=== PATIENT | female | born 1995 | race African-American/Black ===

== ENCOUNTER 2016-08-18 19:55 | Emergency (ER) | payer SELFPAY ==
--- NOTE | 2016-08-18 20:45 | ER Document Report ---
ED Medical Screen (RME) - General Stated Complaint: NAUSEA AND VOMITING Time seen by provider: 20:42 Mode of Arrival: Medic Information source: Patient Notes: 20-year-old female complaining of upper abdominal cramping that started Saturday evening. Saturday morning she woke up vomiting. She's had some diarrhea also. She continues to have some mild cramping in her upper abdomen. She is unable to keep anything down. No fever. No dysuria. has not had a period since her last depot shot which was August 2015. I have greeted and performed a rapid initial assessment of this patient. A comprehensive ED assessment, evaluation of the patient, analysis of test results , and completion of the medical decision making process will be contacted by additional ED providers. Physical Exam - Vital signs Vitals: Temp Pulse Resp BP Pulse Ox 97.9 F 77 18 111/63 97 08/18/16 20:30 08/18/16 20:30 08/18/16 20:30 08/18/16 20:30 08/18/16 20:30 Course - Vital Signs Vital signs: Temp Pulse Resp BP Pulse Ox 97.9 F 77 18 111/63 97 08/18/16 20:30 08/18/16 20:30 08/18/16 20:30 08/18/16 20:30 08/18/16 20:30
[2016-08-18 21:07] LABS: ABSOLUTE EOSINOPHILS # (AUTO) 0.1 10^3/uL (0.0-0.6); ABSOLUTE LYMPHOCYTES (AUTO) 1.8 10^3/uL (0.5-4.7); ABSOLUTE MONOCYTES (AUTO) 0.6 10^3/uL (0.1-1.4); ABSOLUTE NEUT (AUTO) 6.4 10^3/uL (1.7-8.2); BASOPHILS % (AUTO) 0.5 % (0-2); HEMOGLOBIN 13.3 g/dL (12.0-15.5); HGB HCT DIFFERENCE -0.1; LYMPHOCYTES % (AUTO) 19.9 % (13-45); MEAN CORPUSCULAR HEMOGLOBIN 29.7 pg (27.0-33.4); MEAN CORPUSCULAR HGB CONC 33.3 g/dL (32.0-36.0); MEAN CORPUSCULAR VOLUME 89 fl (80-97); MONOCYTES % (AUTO) 6.5 % (3-13); RED BLOOD COUNT 4.49 10^6/uL (3.72-5.28); RED CELL DISTRIBUTION WIDTH 12.7 % (11.5-14.0); SEGMENTED NEUTROPHILS % (AUTO) 72.1 % (42-78); WHITE BLOOD COUNT 8.9 10^3/uL (4.0-10.5)
[2016-08-18 21:13] LABS: APPEARANCE,URINE SLIGHTLY-CLOUDY; BILIRUBIN,URINE NEGATIVE (NEGATIVE); GLUCOSE, URINE NEGATIVE (NEGATIVE); KETONES,URINE NEGATIVE (NEGATIVE); LEUKOCYTE ESTERASE,URINE NEGATIVE (NEGATIVE); NITRITE,URINE NEGATIVE (NEGATIVE); PROTEIN,URINE 30 mg/dL (NEGATIVE); URINE SPECIFIC GRAVITY 1.031; UROBILINOGEN,URINE NEGATIVE mg/dL (<2.0)
[2016-08-18 21:20] LABS: ALANINE AMINOTRANSFERASE 27 U/L (9-52); ALBUMIN 4.7 g/dL (3.5-5.0); ALKALINE PHOSPHATASE 96 U/L (38-126); ANION GAP 13 (5-19); ASPARTATE AMINO TRANSFERASE 17 U/L (14-36); BILIRUBIN,TOTAL 0.7 mg/dL (0.2-1.3); BLOOD UREA NITROGEN 9 mg/dL (7-20); CARBON DIOXIDE 27 mmol/L (22-30); CHLORIDE 104 mmol/L (98-107); CREATININE RESULT 0.65 mg/dL (0.52-1.25); GLUCOSE 104 mg/dL (75-110); LIPASE 51.1 U/L (23-300); SODIUM 143.6 mmol/L (137-145); TOTAL PROTEIN 7.8 g/dL (6.3-8.2)
[2016-08-18] MEDS ORDERED: NORMAL SALINE 1000 ML 1,000 ML IV ONE (21:47)
[2016-08-18] MEDS ORDERED: ONDANSETRON HCL INJ/PF 4 MG/2 ML SDV IV ONE (21:47)
--- NOTE | 2016-08-18 22:30 | ER Document Report ---
ED GI/ - General Chief Complaint: Nausea/Vomiting/Diarrhea Stated Complaint: NAUSEA AND VOMITING Time seen by provider: 22:25 Mode of Arrival: Medic Notes: Patient is a 20-year-old female that comes by EMS for chief complaint of vomiting and diarrhea since yesterday, states she vomited 6 times today, states that if she drinks anything she vomits. She denies fever or chills. She states she did eat some suspicious-looking Armenian food about 8 hours prior to symptoms. She denies any recent antibiotics. She denies any blood in her stool or vomit. Patient denies any surgeries, denies any daily medications, reports past medical history of a . Patient has not had a recent menstrual cycle after getting off of depo shot. TRAVEL OUTSIDE OF THE [place] IN LAST 30 DAYS: No - Related Data Allergies/Adverse Reactions: Penicillins Allergy (Verified 08/18/16 20:45) Past Medical History - General Information source: Patient - Social History Smoking Status: Never Smoker Cigarette use (# per day): No Chew tobacco use (# tins/day): No Frequency of alcohol use: None Drug Abuse: None Lives with: Family Family History: Reviewed & Not Pertinent - Medical History Medical History: Negative Renal/ Medical History: Denies: Hx Peritoneal Dialysis Past Surgical History: Reports: Hx Section Review of Systems - Review of Systems Constitutional: See HPI EENT: See HPI Cardiovascular: No symptoms reported Respiratory: No symptoms reported Gastrointestinal: See HPI Genitourinary: No symptoms reported Female Genitourinary: No symptoms reported Musculoskeletal: No symptoms reported Skin: No symptoms reported Hematologic/Lymphatic: No symptoms reported Neurological/Psychological: No symptoms reported Physical Exam - Vital signs Vitals: Temp Pulse Resp BP Pulse Ox 97.9 F 77 18 111/63 97 08/18/16 20:30 08/18/16 20:30 08/18/16 20:30 08/18/16 20:30 08/18/16 20:30 Interpretation: Normal - General General appearance: Appears well, Alert In distress: None - HEENT Head: Normocephalic, Atraumatic Eyes: Normal Conjunctiva: Normal Extraocular movements intact: Yes Eyelashes: Normal Pupils: PERRL Ears: Normal Sinus: Normal Nasal: Normal Mouth/Lips: Normal Mucous membranes: Dry Pharynx: Normal Neck: Normal - Respiratory Respiratory status: No respiratory distress Chest status: Nontender Breath sounds: Normal Chest palpation: Normal - Cardiovascular Rhythm: Regular. No: Tachycardia Heart sounds: Normal auscultation, S1 appreciated, S2 appreciated Murmur: No - Abdominal Inspection: Normal Distension: No distension Bowel sounds: Normal Tenderness: Nontender. No: Tender, McBurney's point, Chavira's sign, Guarding Organomegaly: No organomegaly - Back Back: Normal, Nontender - Extremities General upper extremity: Normal inspection, Nontender, Normal color, Normal ROM , Normal temperature General lower extremity: Normal inspection, Nontender, Normal color, Normal ROM , Normal temperature, Normal weight bearing. No: Ramón's sign - Neurological Neuro grossly intact: Yes Cognition: Normal Orientation: AAOx4 Angel[place] Coma Scale Eye Opening: Spontaneous Angel[place] Coma Scale Verbal: Oriented Angelica Coma Scale Motor: Obeys Commands Angelica Coma Scale Total: 15 Speech: Normal Motor strength normal: LUE, RUE, LLE, RLE Sensory: Normal - Psychological Associated symptoms: Normal affect, Normal mood - Skin Skin Temperature: Warm Skin Moisture: Dry Skin Color: Normal Course - Re-evaluation Re-evalutation: Patient has no unremarkable abdominal exam. Dry mucous membranes. Elevated specific gravity in urine, CBC, chemistry unremarkable. Patient states she feels excellent after fluids, Zofran. Patient tolerating by mouth fluids without difficulty. Clinical picture is most consistent with either mild food poisoning from a toxin or viral gastroenteritis. No evidence of acute abdomen. Patient will be treated with nausea medications, discussed return precautions. Patient states understanding and agreement. - Vital Signs Vital signs: Temp Pulse Resp BP Pulse Ox 98.5 F 75 18 120/65 98 08/18/16 22:52 08/18/16 22:52 08/18/16 22:52 08/18/16 22:52 08/18/16 22:52 - Laboratory Result Diagrams: 08/18/16 20:50 08/18/16 20:50 Laboratory results interpreted by me: 08/18/16 20:50 Urine Protein 30 H Discharge - Discharge Clinical Impression: Nausea vomiting and diarrhea Condition: Stable Disposition: HOME, SELF-CARE Additional Instructions: Your workup shows no abnormalities other than dehydration. Take nausea medication, continue to rehydrate. Symptoms and examination are most suggestive of either food poisoning with a toxin ingestion or viral gastroenteritis. Start with bland food. Follow-up with primary care. Return to the emergency department for any concerning or worsening symptoms including severe abdominal pain or swelling, uncontrolled vomiting, etc. Prescriptions: Promethazine HCl [Phenergan 25 mg Tablet] 1 - 2 tab PO Q6H PRN #20 tablet PRN Reason: Forms: Return to Work
[2016-08-18 22:55] VITALS: BP 120/65
== END 2016-08-18 22:55 | disposition home or self-care (01) ==
LOC: ER 19:55
DX: R11.2 Nausea with vomiting, unspecified (principal); R19.7 Diarrhea, unspecified; Z88.0 Allergy status to penicillin
CPT/HCPCS: 99283; 96361; 96374; 36415; 87086; 83690; 84703; 85025; 80053; 81001; J2405; J7030

== ENCOUNTER 2016-11-04 08:55 | Emergency (ER) | payer MEDICAID ==
[2016-11-04] MEDS ORDERED: NAPROXEN 250 MG TABLET PO ONE (09:26)
[2016-11-04] MEDS ORDERED: METHOCARBAMOL 500 MG TABLET PO ONE (09:27)
--- NOTE | 2016-11-04 09:49 | ER Document Report ---
ED Neck/Back Problem - General Chief Complaint: Back Pain Stated Complaint: BACK PAIN Mode of Arrival: Ambulatory Information source: Patient Notes: 21 y/o female presents to the emergency department complaining of back pain. Patient reports has had intermittent chronic back pain to mid and lower back for approximately the last 10 years but has never been evaluated for it until this past week. Patient reports over the last week pain has become worse in severity. Reports pain is worse with movement and bending of back. Reports had x-rays of lumbar spine by PCP this past week which she reports showed some scoliosis. Denies trauma or recent injury, fever, dysuria, vaginal bleeding or discharge, extremity weakness/numbness/tingling, saddle numbness, bladder/bowel dysfunction. TRAVEL OUTSIDE OF THE [place] IN LAST 30 DAYS: No - HPI Onset: Chronic Timing: Worse Quality of pain: Achy, Cramping Severity: Moderate Pain Level: 4 Recent injury: No Associated symptoms: Like prior neck/back pain, Lower back pain. denies: Abdominal pain, Chills, Constipation, Fever, Incontinence, Motor loss, Numbness/ tingling, Radiation to arm, Radiation to leg, Sensory loss, Unable to urinate Exacerbated by: Movement of trunk Relieved by: Upright position Similar symptoms previously: Yes Recently seen / treated by doctor: Yes - Related Data Allergies/Adverse Reactions: Penicillins Allergy (Verified 11/04/16 09:52) Past Medical History - General Information source: Patient - Social History Smoking Status: Former Smoker Chew tobacco use (# tins/day): No Frequency of alcohol use: None Drug Abuse: None Lives with: Family Family History: Reviewed & Not Pertinent - Medical History Medical History: Negative Renal/ Medical History: Denies: Hx Peritoneal Dialysis Past Surgical History: Reports: Hx Section - Immunizations Hx Diphtheria, Pertussis, Tetanus Vaccination: Yes Review of Systems - Review of Systems Constitutional: No symptoms reported EENT: No symptoms reported Cardiovascular: No symptoms reported Respiratory: No symptoms reported Gastrointestinal: No symptoms reported Genitourinary: No symptoms reported Female Genitourinary: No symptoms reported Musculoskeletal: See HPI Skin: No symptoms reported Hematologic/Lymphatic: No symptoms reported Neurological/Psychological: No symptoms reported -: Yes All other systems reviewed and negative Physical Exam - Vital signs Vitals: Temp Pulse Resp BP Pulse Ox 98.4 F 83 16 116/72 97 11/04/16 08:59 11/04/16 08:59 11/04/16 08:59 11/04/16 08:59 11/04/16 08:59 - General General appearance: Appears well, Alert In distress: None - HEENT Head: Normocephalic, Atraumatic Eyes: Normal Pupils: PERRL - Respiratory Respiratory status: No respiratory distress Chest status: Nontender Breath sounds: Normal - CTAB Chest palpation: Normal - Cardiovascular Rhythm: Regular Heart sounds: Normal auscultation Murmur: No Pulses: Normal: Radial Normal capillary refill: Yes - Abdominal Inspection: Normal Distension: No distension Bowel sounds: Normal Tenderness: Nontender Organomegaly: No organomegaly - Back Back: Tender. No: Normal - diffuse tenderness with palpation to bilateral paraspinal musculature at thoracic and upper lumbar level. no instability, deformity, crepitus, bruising. Neurovascular function intact with immediate capillary refill, palpable pedal pulses, and distal sensation intact., Nontender , Deformity/step-off, CVA tenderness, Vertebra tenderness, Scars, Scoliosis, Wounds, Other - Extremities General upper extremity: Normal inspection, Nontender, Normal color, Normal ROM , Normal strength, Normal temperature. No: Edema General lower extremity: Normal inspection, Nontender, Normal color, Normal ROM , Normal strength, Normal temperature, Normal weight bearing. 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 X-ray shows mild convex right mid thoracic curvature. The patient presents with back pain without signs of spinal cord compression, cauda equina syndrome, infection, aneurysm, or other serious etiology. The patient is neurologically intact, independently and steadily ambulatory without paresthesias or neurological deficits. Given the extremely low risk of these diagnoses further testing and evaluation for these possibilities does not appear to be indicated at this time. Patient appears stable for discharge and agrees with home care, follow-up , and ED return precautions. - Vital Signs Vital signs: Temp Pulse Resp BP Pulse Ox 98.4 F 67 18 113/74 100 11/04/16 08:59 11/04/16 10:52 11/04/16 10:52 11/04/16 10:52 11/04/16 10:52 - Diagnostic Test Radiology reviewed: Image reviewed, Reports reviewed Discharge - Discharge Clinical Impression: Back pain, thoracic Qualifiers: Chronicity: chronic Back pain laterality: bilateral Qualified Code(s): M54.6 - Pain in thoracic spine Condition: Stable Disposition: HOME, SELF-CARE Additional Instructions: BACK PAIN: Three out of every four people will have an episode of disabling back pain during their lifetime. Most commonly the pain is due to straining of the muscles and ligaments in the back. Usual treatment includes: (1) Rest on a firm surface. Avoid lying on your stomach. (2) Ice pack the painful area. After a few days, gentle heat may be used intermittently to relax the area, or ice packs can be continued. (3) Medication may be needed -- muscle relaxers and antiinflammatory medicines are commonly used. (4) As the back improves, exercises are prescribed to strengthen the back and abdominal muscles. Your doctor will advise you on the proper care for your back at each stage in your recovery. You may be better in a few days -- or healing may take several weeks. If new symptoms of a "herniated disc" (radiation of pain, numbness, or tingling down the back of the leg or weakness in the leg) occur, you should be re-examined. Further testing may be necessary. Anti-Inflammatory Medication You have received a prescription for an antiinflammatory agent. This is an excellent, safe drug for pain control. In addition, it has potent antiinflammatory effects which are beneficial, especially in the treatment of injuries, arthritis, or tendonitis. It's best to take this medicine with food. Persons with ulcer disease or allergy to aspirin should notify their physician of this before taking this drug. Take the medication exactly as prescribed. Don't take additional doses unless instructed to do so by your doctor. If you develop wheezing, shortness of breath, hives, faintness, stomach pain, vomiting, or dark black stools, return for re-evaluation at once. MUSCLE RELAXERS: Muscle relaxing medications are usually prescribed for acute muscle spasm or injury to the neck and back. They are often combined with antiinflammatory pain medication for increased relief. You may stop the muscle relaxer when the pain and stiffness have improved. Start the medication again if spasms recur. Muscle relaxers may cause drowsiness, especially with the first dose. Do not operate machinery or drive while under the effects of the medication. Most muscle relaxers last up to 24 hours. Do not combine the medication with alcohol. ICE PACKS: Apply ice packs frequently against the painful area. Many different schedules are recommended, such as "20 minutes on, 20 minutes off" or "one hour ice, two hours rest." If you need to work, you may need to go longer between ice treatments. You should plan to have the area ice packed AT LEAST one fourth of the time. The ice should be applied over the wrap, tape, or splint, or over a layer of cloth -- not directly against the skin. Some ice bags have a built-in cloth and can be put directly on the skin. WARM PACKS: After approximately two days, apply gentle heat (such as a heating pad or hot water bottle) for about 20 to 30 minutes about every two hours -- at least four times daily. Warmth and elevation will help you make a more rapid recovery , and will ease the pain considerably. Do not use HOT heat, and never apply heat for longer than 30 minutes. The continuous heat can invisibly damage skin and muscles -- even when no burn is seen on the surface. Damaged muscles can make you MORE sore. FOLLOW-UP CARE: Follow-up with your primary care provider and logistic specialist this week. Return to the emergency department for any worsening symptoms or concerns. Prescriptions: Methocarbamol [Robaxin 500 mg Tablet] 500 mg PO Q8HP PRN #10 tablet PRN Reason: Naproxen 500 mg PO BIDP PRN #10 tablet PRN Reason: Referrals: MACI DOTSON MD [NO LOCAL MD] - Follow up in 3-5 days
[2016-11-04 10:54] VITALS: BP 113/74
== END 2016-11-04 10:52 | disposition home or self-care (01) ==
LOC: ER 08:55
DX: G89.29 Other chronic pain (principal); M54.6 Pain in thoracic spine; M41.9 Scoliosis, unspecified; Z88.0 Allergy status to penicillin; Z87.891 Personal history of nicotine dependence
CPT/HCPCS: 99283; 72070; J3490 ×2

== ENCOUNTER 2017-02-07 10:23 | Emergency (ER) | payer MEDICAID ==
[2017-02-07 10:29] VITALS: BP 133/63
--- NOTE | 2017-02-07 10:40 | ER Document Report ---
HPI - HPI Patient complains to provider of: right hip pain Onset: Other - one week Onset/Duration: Gradual Quality of pain: Achy Pain Level: 4 Context: denies injury, trauma. denies past history of injury of this extremity Associated Symptoms: None Exacerbated by: Movement, Walking, Other - deep palaption Relieved by: Remaining still Similar symptoms previously: No Recently seen / treated by doctor: No - DERM Skin Color: Normal Past Medical History - Social History Smoking Status: Never Smoker Family History: Reviewed & Not Pertinent Patient has suicidal ideation: No Patient has homicidal ideation: No Renal/ Medical History: Denies: Hx Peritoneal Dialysis Past Surgical History: Reports: Hx Section - Immunizations Hx Diphtheria, Pertussis, Tetanus Vaccination: Yes Vertical Provider Document - CONSTITUTIONAL Agree With Documented VS: Yes Exam Limitations: No Limitations General Appearance: WD/WN, No Apparent Distress - INFECTION CONTROL TRAVEL OUTSIDE OF THE [place] IN LAST 30 DAYS: No - RESPIRATORY O2 Sat by Pulse Oximetry: 99 - CARDIOVASCULAR Pulses: Normal: Dorsalis pedis Notes: cap refill < 2 seconds - MUSCULOSKELETAL/EXTREMETIES Musculoskeletal/Extremeties: MAEW, FROM, Tender - along ITB of right leg, No Edema. negative: Eccymosis Notes: no deformity, gait stable - NEURO Level of Consciousness: Awake, Alert, Appropriate Motor/Sensory: No Motor Deficit, No Sensory Deficit - DERM Integumentary: Warm, Dry, No Rash. negative: Abscess Course - Re-evaluation Re-evalutation: 02/07/17 11:15 Patient is a 21-year-old female presents with right hip and thigh pain for 1 week. Presentation and exam consistent with IT band syndrome. Low clinical suspicion for any underlying fracture, dislocation given benign exam therfore no imaging needed at this time, wells score 0. Patient educated on over-the- counter anti-inflammatories, stretches, ice. Patient to follow-up with primary care as needed. Patient agrees with plan. - Vital Signs Vital signs: Temp Pulse Resp BP Pulse Ox 98.1 F 65 16 133/63 H 99 02/07/17 10:27 02/07/17 10:27 02/07/17 10:27 02/07/17 10:27 02/07/17 10:27 Discharge - Discharge Clinical Impression: IT band syndrome Qualifiers: Laterality: right Qualified Code(s): M76.31 - Iliotibial band syndrome, right leg Condition: Good Disposition: HOME, SELF-CARE Instructions: Use of Idfy-Tfo-Siwqyxy Ibuprofen ([facility]), Ice Packs ([facility]) Additional Instructions: Your complaint today is related to inflammation of your IT band Prescriptions: Ibuprofen [Motrin 800 mg Tablet] 800 mg PO Q8H PRN #30 tab PRN Reason:
[2017-02-07] MEDS ORDERED: IBUPROFEN 800 MG TABLET PO ONE (10:56)
== END 2017-02-07 11:06 | disposition home or self-care (01) ==
LOC: ER 10:23
DX: M76.31 Iliotibial band syndrome, right leg (principal)
CPT/HCPCS: 99283

== ENCOUNTER 2017-04-07 01:52 | Emergency (ER) | payer MEDICAID ==
[2017-04-07 02:02] VITALS: BP 127/66
[2017-04-07] MEDS ORDERED: FLUCONAZOLE 100 MG TABLET PO ONE (02:46)
[2017-04-07 03:11] LABS: APPEARANCE,URINE SLIGHTLY-CLOUDY; BILIRUBIN,URINE NEGATIVE (NEGATIVE); GLUCOSE, URINE NEGATIVE (NEGATIVE); KETONES,URINE TRACE mg/dL (NEGATIVE); LEUKOCYTE ESTERASE,URINE NEGATIVE (NEGATIVE); NITRITE,URINE NEGATIVE (NEGATIVE); PROTEIN,URINE 30 mg/dL (NEGATIVE); URINE SPECIFIC GRAVITY 1.033
--- NOTE | 2017-04-07 03:19 | ER Document Report ---
ED GI/ - General Chief Complaint: Vaginal Pain Stated Complaint: VAGINAL ISSUES Time Seen by Provider: 04/07/17 02:18 Mode of Arrival: Ambulatory Information source: Patient TRAVEL OUTSIDE OF THE [place] IN LAST 30 DAYS: No - HPI Patient complains to provider of: Vaginal discharge Onset: Yesterday Timing/Duration: Persistent Quality of pain: Achy Severity at maximum: Mild Severity in ED: Mild Location: Vaginal Associated symptoms: Vaginal discharge Notes: 04/07/17 05:06 Patient is a 21-year-old female presenting to the emergency room today complaining of vaginal discharge which is thick and white in nature and causing vaginal irritation, she reports that she last had sexual intercourse approximately 1 month ago, with a long-term partner, it was unprotected, she then experienced 2 periods over the course of 3 weeks, and she used a vaginal douche on Saturday, the next day she developed the thick white discharge and discomfort, she denies any nausea or vomiting, no diarrhea, no fever or chills - Related Data Allergies/Adverse Reactions: Penicillins Allergy (Verified 04/07/17 02:00) Past Medical History - General Information source: Patient - Social History Smoking Status: Never Smoker Drug Abuse: Marijuana Family History: Reviewed & Not Pertinent Renal/ Medical History: Denies: Hx Peritoneal Dialysis Past Surgical History: Reports: Hx Section - Immunizations Hx Diphtheria, Pertussis, Tetanus Vaccination: Yes Review of Systems - Review of Systems Constitutional: No symptoms reported EENT: No symptoms reported Cardiovascular: No symptoms reported Respiratory: No symptoms reported Gastrointestinal: No symptoms reported Genitourinary: No symptoms reported Female Genitourinary: See HPI Musculoskeletal: No symptoms reported Skin: No symptoms reported Hematologic/Lymphatic: No symptoms reported Neurological/Psychological: No symptoms reported -: Yes All other systems reviewed and negative Physical Exam - Vital signs Vitals: Temp Pulse Resp BP Pulse Ox 98.7 F 82 17 127/66 H 96 04/07/17 01:59 04/07/17 01:59 04/07/17 01:59 04/07/17 01:59 04/07/17 01:59 Interpretation: Normal - General General appearance: Appears well, Alert - HEENT Head: Normocephalic, Atraumatic Eyes: Normal Pupils: PERRL - Respiratory Respiratory status: No respiratory distress Chest status: Nontender Breath sounds: Normal Chest palpation: Normal - Cardiovascular Rhythm: Regular Heart sounds: Normal auscultation Murmur: No - Abdominal Inspection: Normal Distension: No distension Bowel sounds: Normal Tenderness: Nontender Organomegaly: No organomegaly - Genitourinary External exam: Normal Speculum exam: Vaginal discharge - Thick white cottage cheeselike discharge Vaginal bleeding: None Bimanuel exam: Normal - Back Back: Normal, Nontender - Extremities General upper extremity: Normal inspection, Nontender, Normal color, Normal ROM , Normal temperature General lower extremity: Normal inspection, Nontender, Normal color, Normal ROM , Normal temperature, Normal weight bearing. No: Ramón's sign - Neurological Neuro grossly intact: Yes Cognition: Normal Orientation: AAOx4 [place] Coma Scale Eye Opening: Spontaneous [place] Coma Scale Verbal: Oriented Angelica Coma Scale Motor: Obeys Commands Angelica Coma Scale Total: 15 Speech: Normal Motor strength normal: LUE, RUE, LLE, RLE Sensory: Normal - Psychological Associated symptoms: Normal affect, Normal mood - Skin Skin Temperature: Warm Skin Moisture: Dry Skin Color: Normal Course - Re-evaluation Re-evalutation: 04/07/17 05:07 Physical exam findings consistent with vaginal yeast infection, patient was given a dose of Diflucan in the emergency room and advised to follow-up with the primary care provider as needed, return if symptoms worsen, patient acknowledges understanding and agreement with this plan - Vital Signs Vital signs: Temp Pulse Resp BP Pulse Ox 98.7 F 84 18 127/66 H 100 04/07/17 01:59 04/07/17 03:30 04/07/17 03:30 04/07/17 01:59 04/07/17 03:30 - Laboratory Laboratory results interpreted by me: 04/07/17 02:59 Urine Protein 30 H Urine Ketones TRACE H Urine Urobilinogen 2.0 H Urine Ascorbic Acid 20 H Discharge - Discharge Clinical Impression: Vaginal yeast infection Condition: Stable Disposition: HOME, SELF-CARE Instructions: Vaginal Yeast Infection ([facility]) Additional Instructions: Follow up with your primary care provider in one to 2 days. Return to the emergency room immediately if symptoms worsen or any additional concerns.
[2017-04-07 04:22] LABS: CHLAM PCR NOT DETECTED (NOT DETECT)
== END 2017-04-07 03:30 | disposition home or self-care (01) ==
LOC: ER 01:52
DX: B37.3 Candidiasis of vulva and vagina (principal); R10.2 Pelvic and perineal pain; N89.8 Other specified noninflammatory disorders of vagina
CPT/HCPCS: 99283; 87210; 81025; 81001; 87491; 87591; J3490

== ENCOUNTER 2017-07-01 08:24 | Emergency (ER) | payer MEDICAID ==
[2017-07-01] MEDS ORDERED: DIPHENHYDRAMINE HCL 50 MG/ML VIAL IV ONE (09:10)
[2017-07-01] MEDS ORDERED: NORMAL SALINE 1000 ML 1,000 ML IV ONE (09:10)
[2017-07-01] MEDS ORDERED: PROCHLORPERAZINE EDISYLATE INJ 10 MG/2 ML VIAL IV ONE (09:10)
--- NOTE | 2017-07-01 09:10 | ER Document Report ---
ED General - General Chief Complaint: Headache >24 hrs old Stated Complaint: CHEST PAIN AND HEADACHE Time Seen by Provider: 07/01/17 08:41 Mode of Arrival: Ambulatory Information source: Patient Notes: 21 yr old female presents with a waxing waning headache of the right frontal head of 3 week duraion. Pt denies any fevers or chills, denies any nausea or vomiting. pt does note that light and sound bother her headache. pt also notes sob, without any chest pain, denies any dvt or pe risk factors TRAVEL OUTSIDE OF THE [place] IN LAST 30 DAYS: No - HPI Onset: Other Onset/Duration: Intermittent, Waxing and waning Quality of pain: Achy Severity: Mild Pain Level: 1 Associated symptoms: Headache, Shortness of breath Exacerbated by: Other Relieved by: Denies Similar symptoms previously: No Recently seen / treated by doctor: No - Related Data Allergies/Adverse Reactions: Penicillins Allergy (Verified 07/01/17 08:31) Past Medical History - Social History Smoking Status: Never Smoker Cigarette use (# per day): No Chew tobacco use (# tins/day): No Smoking Education Provided: No Family History: Reviewed & Not Pertinent Renal/ Medical History: Denies: Hx Peritoneal Dialysis Past Surgical History: Reports: Hx Section - Immunizations Hx Diphtheria, Pertussis, Tetanus Vaccination: Yes Review of Systems - Review of Systems Notes: REVIEW OF SYSTEMS: CONSTITUTIONAL : Denies fever, chills, or sweats. Denies recent illness. EENT: Denies eye, ear, throat, or mouth pain or symptoms. Denies nasal or sinus congestion or discharge. Denies throat, tongue, or mouth swelling or difficulty swallowing. CARDIOVASCULAR: Denies chest pain. Denies palpitations or racing or irregular heart beat. Denies ankle edema. RESPIRATORY: admits to sob GASTROINTESTINAL: Denies abdominal pain or distention. Denies nausea, vomiting , or diarrhea. Denies blood in vomitus, stools, or per rectum. Denies black, tarry stools. Denies constipation. GENITOURINARY: Denies difficulty urinating, painful urination, burning, frequency, blood in urine, or discharge. FEMALE GENITOURINARY: Denies vaginal bleeding, heavy or abnormal periods, irregular periods. Denies vaginal discharge or odor. MUSCULOSKELETAL: Denies back or neck pain or stiffness. Denies joint pain or swelling. SKIN: Denies rash, lesions or sores. HEMATOLOGIC : Denies easy bruising or bleeding. LYMPHATIC: Denies swollen, enlarged glands. NEUROLOGICAL: admits to headache PSYCHIATRIC: Denies anxiety or stress. Denies depression, suicidal ideation, or homicidal ideation. ALL OTHER SYSTEMS REVIEWED AND NEGATIVE. PHYSICAL EXAMINATION: GENERAL: Well-appearing, well-nourished and in no acute distress. pt playing on her cell phone with no difficulty HEAD: Atraumatic, normocephalic. EYES: Pupils equal round and reactive to light, extraocular movements intact, conjunctiva are normal. ENT: Nares patent, oropharynx clear without exudates. Moist mucous membranes. NECK: Normal range of motion, supple without lymphadenopathy LUNGS: Breath sounds clear to auscultation bilaterally and equal. No wheezes rales or rhonchi. HEART: Regular rate and rhythm without murmurs ABDOMEN: Soft, nontender, nondistended abdomen. No guarding, no rebound. No masses appreciated. Female : deferred Musculoskeletal: Normal range of motion, no pitting or edema. No cyanosis. NEUROLOGICAL: Cranial nerves grossly intact. Normal speech, normal gait. Normal sensory, motor exams PSYCH: Normal mood, normal affect. SKIN: Warm, Dry, normal turgor, no rashes or lesions noted. Dictation was performed using [employer] voice recognition software Physical Exam - Vital signs Vitals: Temp Pulse Resp BP Pulse Ox 99.2 F 76 20 124/67 98 07/01/17 08:35 07/01/17 08:35 07/01/17 08:35 07/01/17 08:35 07/01/17 08:35 Course - Re-evaluation Re-evalutation: 07/01/17 09:57 CT imaging noted no significant abnormality, patient looks well otherwise, she is in no significant distress, patient notes significant improvement of her migraine headache. After performing a Medical Screening Examination, I estimate there is LOW risk for ACUTE GLAUCOMA, TEMPORAL ARTERITIS, MENINGITIS, INCRANIAL HEMORRHAGE, or ISCHEMIC STROKE thus I consider the discharge disposition reasonable. I have reevaluated this patient multiple times and no significant life threatening changes are noted. The patient and I have discussed the diagnosis and risks, and we agree with discharging home with close follow-up with the understanding that symptoms and presentations can change. We also discussed returning to the Emergency Department immediately if new or worsening symptoms occur. We have discussed the symptoms which are most concerning (e.g., changing or worsening symptoms, new numbness or weakness, vomiting, fever) that necessitate immediate return. - Vital Signs Vital signs: Temp Pulse Resp BP Pulse Ox 99.2 F 76 20 124/67 98 07/01/17 08:35 07/01/17 08:35 07/01/17 08:35 07/01/17 08:35 07/01/17 08:35 - Diagnostic Test Radiology reviewed: Image reviewed, Reports reviewed - no acute abnormality Discharge - Discharge Clinical Impression: Migraine headache Qualifiers: Migraine type: unspecified Status migrainosus presence: without status migrainosus Intractability: not intractable Qualified Code(s): G43.909 - Migraine, unspecified, not intractable, without status migrainosus Condition: Stable Disposition: HOME, SELF-CARE Instructions: Migraine Headache ([facility]) Referrals: STELLA TURNER MD [ACTIVE STAFF] - 07/02/17
[2017-07-01] MEDS ORDERED: PROCHLORPERAZINE EDISYLATE INJ 10 MG/2 ML VIAL ONE (09:41)
--- NOTE | 2017-07-01 09:50 | RADIOLOGY REPORT (SQ) ---
EXAM DESCRIPTION: CT HEAD WITHOUT COMPLETED DATE/TIME: 07/01/2017 9:28 am REASON FOR STUDY: new onset headache 3 week duration COMPARISON: None. TECHNIQUE: Axial images acquired through the brain without intravenous contrast. Images reviewed wi th bone, brain and subdural windows. Images stored on PACS. All CT scanners at this facility use dose modulation, iterative reconstruction, and/or weight based d osing when appropriate to reduce radiation dose to as low as reasonably achievable (ALARA). [facility]: Dose Right [facility]: CareDose [facility]: Dose Right [facility]: Teradose 4D [facility]: Evrent RADIATION DOSE: 64.61 mGy. LIMITATIONS: None. FINDINGS: VENTRICLES: Normal size and contour. CEREBRUM: No masses. No hemorrhage. No midline shift. No evidence for acute infarction. Normal gra y/white matter differentiation. No areas of low density in the white matter. CEREBELLUM: No masses. No hemorrhage. No alteration of density. No evidence for acute infarction. EXTRAAXIAL SPACES: No fluid collections. No masses. ORBITS AND GLOBE: No intra- or extraconal masses. Normal contour of globe without masses. CALVARIUM: No fracture. PARANASAL SINUSES: No fluid or mucosal thickening. SOFT TISSUES: No mass or hematoma. OTHER: No other significant finding. IMPRESSION: NORMAL BRAIN CT WITHOUT CONTRAST. EVIDENCE OF ACUTE STROKE: NO. COMMENT: Quality ID # [id number]: Final reports with documentation of one or more dose reduction techniques (e.g., Automated exposure control, adjustment of the mA and/or kV according to patient size, use of iterative reconstruction technique) TECHNICAL DOCUMENTATION: JOB ID: [id number] [employer] All Rights Reserved
[2017-07-01 10:26] VITALS: BP 106/67
== END 2017-07-01 10:25 | disposition home or self-care (01) ==
LOC: ER 08:24
DX: G43.909 Migraine, unspecified, not intractable, without status migrainosus (principal); R07.9 Chest pain, unspecified; R06.02 Shortness of breath; Z88.0 Allergy status to penicillin
CPT/HCPCS: 99285; 96361; 96374; 96375; 70450; J1200; J0780; J7030

== ENCOUNTER 2017-08-03 13:08 | Emergency (ER) | payer SELFPAY ==
[2017-08-03 13:18] VITALS: BP 123/74
[2017-08-03] MEDS ORDERED: NORMAL SALINE 1000 ML 1,000 ML IV ONE ×2 (13:39→15:13)
--- NOTE | 2017-08-03 13:40 | ER Document Report ---
ED Medical Screen (RME) - General Chief Complaint: Nausea/Vomiting/Diarrhea Stated Complaint: ABDOMINAL PAIN VOMITING Time Seen by Provider: 08/03/17 13:38 Mode of Arrival: Ambulatory Information source: Patient TRAVEL OUTSIDE OF THE [place] IN LAST 30 DAYS: No - HPI Patient complains to provider of: abd pain Onset: Yesterday - pt. started with ingtermittent abd pain since yesterday with n/V/D - Related Data Allergies/Adverse Reactions: Penicillins Allergy (Verified 08/03/17 13:36) Past Medical History - Social History Chew tobacco use (# tins/day): No Frequency of alcohol use: Occasional Drug Abuse: Marijuana Renal/ Medical History: Denies: Hx Peritoneal Dialysis Past Surgical History: Reports: Hx Section - Immunizations Hx Diphtheria, Pertussis, Tetanus Vaccination: Yes History of Influenza Vaccine for 04/2017 - 09/2017 Season: Refused Physical Exam - Vital signs Vitals: Temp Pulse Resp BP Pulse Ox 97.4 F 84 18 123/74 100 08/03/17 13:16 08/03/17 13:16 08/03/17 13:16 08/03/17 13:16 08/03/17 13:16 Course - Vital Signs Vital signs: Temp Pulse Resp BP Pulse Ox 97.4 F 84 18 123/74 100 08/03/17 13:16 08/03/17 13:16 08/03/17 13:16 08/03/17 13:16 08/03/17 13:16
[2017-08-03 15:03] LABS: ABSOLUTE BASOPHILS # (AUTO) 0.1 10^3/uL (0.0-0.2); ABSOLUTE LYMPHOCYTES (AUTO) 1.3 10^3/uL (0.5-4.7); ABSOLUTE MONOCYTES (AUTO) 0.8 10^3/uL (0.1-1.4); ABSOLUTE NEUT (AUTO) 13.6 10^3/uL (1.7-8.2); BASOPHILS % (AUTO) 0.4 % (0-2); EOSINOPHILS % (AUTO) 0.3 % (0-6); HEMATOCRIT 42.9 % (36.0-47.0); HEMOGLOBIN 14.7 g/dL (12.0-15.5); LYMPHOCYTES % (AUTO) 8.3 % (13-45); MEAN CORPUSCULAR HEMOGLOBIN 30.5 pg (27.0-33.4); MEAN CORPUSCULAR HGB CONC 34.3 g/dL (32.0-36.0); MEAN CORPUSCULAR VOLUME 89 fl (80-97); MONOCYTES % (AUTO) 4.8 % (3-13); PLATELET COUNT 585 10^3/uL (150-450); RED BLOOD COUNT 4.81 10^6/uL (3.72-5.28); RED CELL DISTRIBUTION WIDTH 12.6 % (11.5-14.0); SEGMENTED NEUTROPHILS % (AUTO) 86.2 % (42-78); TOTAL CELLS COUNTED % (AUTO) 100 %; WHITE BLOOD COUNT 15.8 10^3/uL (4.0-10.5)
[2017-08-03] MEDS ORDERED: ONDANSETRON HCL INJ/PF 4 MG/2 ML SDV IV ONE (15:07)
--- NOTE | 2017-08-03 15:21 | ER Document Report ---
HPI - HPI Patient complains to provider of: vomiting, diarrhea Onset: This morning Onset/Duration: Persistent Quality of pain: Cramping Pain Level: 4 Context: Patient presents with nausea vomiting diarrhea that started today. Patient is here with her boyfriend who has similar symptoms. Patient denies any fever. Patient denies any blood in the vomit or stool. Patient denies any concern about . Patient with decreased urine output. Associated Symptoms: Diarrhea, Nausea, Vomiting. denies: Nonproductive cough, Productive cough, Fever Exacerbated by: Denies Relieved by: Denies Similar symptoms previously: No Recently seen / treated by doctor: No - ROS ROS below otherwise negative: Yes Systems Reviewed and Negative: Yes All other systems reviewed and negative - CONSTITUTIONAL Constitutional: DENIES: Fever, Chills - EENT EENT: DENIES: Sore Throat - CARDIOVASCULAR Cardiovascular: DENIES: Chest pain - RESPIRATORY Respiratory: DENIES: Coughing - GASTROINTESTINAL Gastrointestinal: REPORTS: Abdominal Pain, Nausea, Patient vomiting, Diarrhea. 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 IN LAST 30 DAYS: No - HEENT HEENT: Atraumatic, Normal ENT Exam, Normocephalic - NECK Neck: Normal Inspection, Supple. negative: Lymphadenopathy-Left, Lymphadenopathy-Right - RESPIRATORY Respiratory: Breath Sounds Normal, No Respiratory Distress, Chest Non-Tender O2 Sat by Pulse Oximetry: 100 - CARDIOVASCULAR Cardiovascular: Regular Rate, Regular Rhythm, No Murmur - GI/ABDOMEN Gastrointestinal: Abdomen Soft, Abdomen Tender - Diffuse abdominal tenderness, no focal area of tenderness, no guarding, Normal Bowel Sounds. negative: Abdominal Guarding, Abnormal Bowel Sounds - BACK Back: Normal Inspection. negative: CVA Tenderness-Right, CVA Tenderness-Left - MUSCULOSKELETAL/EXTREMETIES Musculoskeletal/Extremeties: RADHA TOTH - NEURO Level of Consciousness: Awake, Alert, Appropriate Motor/Sensory: No Motor Deficit - DERM Integumentary: Warm, Dry, No Rash Course - Re-evaluation Re-evalutation: 08/03/17 16:33 Patient's abdomen soft, nontender. Patient denies any nausea at this time. Patient is requesting oral fluids. Patient states that partner has had unprotected intercourse with an ex-girlfriend and she would like to be tested and treated for gonorrhea and chlamydia. 08/03/17 18:00 Patient vomited one time. Patient did vomit after the antibiotic and is uncertain if this may have upset her stomach. Additional nausea medication ordered. - Vital Signs Vital signs: Temp Pulse Resp BP Pulse Ox 97.4 F 84 18 123/74 100 08/03/17 13:16 08/03/17 13:16 08/03/17 13:16 08/03/17 13:16 08/03/17 13:16 - Laboratory Result Diagrams: 08/03/17 14:25 08/03/17 15:35 Laboratory results interpreted by me: 08/03/17 14:25 WBC 15.8 H Plt Count 585 H Seg Neutrophils % 86.2 H Lymphocytes % 8.3 L Absolute Neutrophils 13.6 H 08/03/17 18:38 Labs- Entire Visit 08/03/17 08/03/17 08/03/17 14:25 14:25 15:35 WBC 15.8 H RBC 4.81 Hgb 14.7 Hct 42.9 MCV 89 MCH 30.5 MCHC 34.3 RDW 12.6 Plt Count 585 H Seg Neutrophils % 86.2 H Lymphocytes % 8.3 L Monocytes % 4.8 Eosinophils % 0.3 Basophils % 0.4 Absolute Neutrophils 13.6 H Absolute Lymphocytes 1.3 Absolute Monocytes 0.8 Absolute Eosinophils 0.0 Absolute Basophils 0.1 Sodium Cancelled 142.9 Potassium Cancelled 4.7 Chloride Cancelled 110 H Carbon Dioxide Cancelled 21 L Anion Gap Cancelled 12 BUN Cancelled 12 Creatinine Cancelled 0.70 Est GFR ( Amer) Cancelled > 60 Est GFR (Non-Af Amer) Cancelled > 60 Glucose Cancelled 82 Calcium Cancelled 9.6 Total Bilirubin Cancelled 0.7 Direct Bilirubin Cancelled 0.3 Neonat Total Bilirubin Cancelled Not Reportable Neonat Direct Bilirubin Cancelled Not Reportable Neonat Indirect Bili Cancelled Not Reportable AST Cancelled 20 ALT Cancelled 27 Alkaline Phosphatase Cancelled 67 Total Protein Cancelled 7.4 Albumin Cancelled 4.4 Lipase Cancelled 50.9 Serum HCG, Qual Urine Color Urine Appearance Urine pH Ur Specific [place] Urine Protein Urine Glucose (UA) Urine Ketones Urine Blood Urine Nitrite Urine Bilirubin Urine Urobilinogen Ur Leukocyte Esterase Urine WBC (Auto) Urine RBC (Auto) Urine Mucus (Auto) Urine Ascorbic Acid Epi Cells (Wet Prep) Bacteria (Wet Prep) Trichomonas (Wet Prep) Vaginal WBC Vaginal RBC Vaginal Yeast Chlamydia DNA (PCR) N.gonorrhoeae DNA (PCR) 08/03/17 08/03/17 08/03/17 15:35 16:25 16:25 WBC RBC Hgb Hct MCV MCH MCHC RDW Plt Count Seg Neutrophils % Lymphocytes % Monocytes % Eosinophils % Basophils % Absolute Neutrophils Absolute Lymphocytes Absolute Monocytes Absolute Eosinophils Absolute Basophils Sodium Potassium Chloride Carbon Dioxide Anion Gap BUN Creatinine Est GFR ( Amer) Est GFR (Non-Af Amer) Glucose Calcium Total Bilirubin Direct Bilirubin Neonat Total Bilirubin Neonat Direct Bilirubin Neonat Indirect Bili AST ALT Alkaline Phosphatase Total Protein Albumin Lipase Serum HCG, Qual NEGATIVE Urine Color YELLOW Urine Appearance CLEAR Urine pH 5.0 Ur Specific [place] 1.017 Urine Protein NEGATIVE Urine Glucose (UA) NEGATIVE Urine Ketones 20 H Urine Blood MODERATE H Urine Nitrite NEGATIVE Urine Bilirubin NEGATIVE Urine Urobilinogen NEGATIVE Ur Leukocyte Esterase NEGATIVE Urine WBC (Auto) 0 Urine RBC (Auto) 2 Urine Mucus (Auto) OCC Urine Ascorbic Acid NEGATIVE Epi Cells (Wet Prep) Bacteria (Wet Prep) Trichomonas (Wet Prep) Vaginal WBC Vaginal RBC Vaginal Yeast Chlamydia DNA (PCR) NOT DETECTED N.gonorrhoeae DNA (PCR) NOT DETECTED 08/03/17 16:25 WBC RBC Hgb Hct MCV MCH MCHC RDW Plt Count Seg Neutrophils % Lymphocytes % Monocytes % Eosinophils % Basophils % Absolute Neutrophils Absolute Lymphocytes Absolute Monocytes Absolute Eosinophils Absolute Basophils Sodium Potassium Chloride Carbon Dioxide Anion Gap BUN Creatinine Est GFR ( Amer) Est GFR (Non-Af Amer) Glucose Calcium Total Bilirubin Direct Bilirubin Neonat Total Bilirubin Neonat Direct Bilirubin Neonat Indirect Bili AST ALT Alkaline Phosphatase Total Protein Albumin Lipase Serum HCG, Qual Urine Color Urine Appearance Urine pH Ur Specific [place] Urine Protein Urine Glucose (UA) Urine Ketones Urine Blood Urine Nitrite Urine Bilirubin Urine Urobilinogen Ur Leukocyte Esterase Urine WBC (Auto) Urine RBC (Auto) Urine Mucus (Auto) Urine Ascorbic Acid Epi Cells (Wet Prep) 3+ EPITHELIALS SEEN Bacteria (Wet Prep) 3+ BACTERIA SEEN Trichomonas (Wet Prep) NO TRICHOMONAS SEEN Vaginal WBC FEW WBCS SEEN Vaginal RBC FEW RBCS SEEN Vaginal Yeast NO YEAST SEEN Chlamydia DNA (PCR) N.gonorrhoeae DNA (PCR) Discharge - Discharge Clinical Impression: Vomiting and diarrhea, Abdominal cramping Condition: Stable Disposition: HOME, SELF-CARE Additional Instructions: Return immediately for any new or worsening symptoms Followup with your primary care provider, [facility] call tomorrow to make a followup appointment VOMITING: Vomiting (or nausea without vomiting) can be caused by many other different problems. It can mean that something's wrong with the stomach, such as ulcers or inflammation or the intestinal tract, such as appendicitis. But it can also be a symptom of a problem that has nothing to do with the stomach or intestines. Vomiting is common with severe headaches, earaches, tonsillitis, and kidney infections, etc. We see it with pneumonia or heart attacks. Drugs can cause nausea and vomiting. Many abdominal problems cause vomiting; for example, gallstones, kidney stones, pancreatitis, and intestinal obstruction ( blocked bowels). In most cases, curing the vomiting depends on fixing the problem that caused it. For temporary relief, we may use an anti-nausea medicine. For home use, we can prescribe suppositories, chewable pills, pills that dissolve in the mouth, or liquid anti-nausea drugs. If the vomiting seems to be caused by a problem in the stomach, acid-suppressing drugs may be prescribed as well. It's important to avoid dehydration. Sip small amounts of clear liquids ( soft drinks, tea, broth, etc) . Try to take fluids frequently even if you are vomiting to prevent dehydration. Take increasing amounts of fluid and when liquids are being consumed successfully, advance to small amounts of bland food (toast, soups, mashed potatoes, etc.) until you are able to resume a regular diet. Avoid aspirin, tobacco, and alcohol. If the vomiting worsens, if the problem that's making you vomit worsens, or if there's evidence of bleeding in the stomach (such as black, tarry stool, or bloody or black vomit), you should return immediately. Also, return if abdominal pain worsens or becomes localized to one area or you develop high fever. Call your doctor if you aren't improved in 24 hours. DIARRHEA, NON-SPECIFIC: Diarrhea means frequent, watery stools. There are many causes. Any problem that keeps the intestinal tract from absorbing water from the stool can lead to diarrhea. A sudden new diarrhea problem is usually caused by a virus, food sensitivity, toxic bacteria, or drugs. In this case, we expect the problem to go away soon. Testing is done only if you seem seriously ill from the diarrhea. If you have chronic diarrhea, or diarrhea that keeps coming back, we need to find out why. Chronic diarrhea can be due to inflammation of the bowels such as Crohn's disease or ulcerative colitis, food sensitivity such as intolerance to lactose or wheat protein, irritable bowel syndrome, and other problems. If your diarrhea is a significant problem but it's not clear why you have it, we' ll refer you to a specialist for further testing. During an episode of diarrhea, drink small amounts (two to six ounces) of clear liquids (soft drinks, sport drinks, herb teas, broth, etc). Take fluids frequently to prevent dehydration. It's usually not a problem to take mild anti- diarrhea medication such as Kaopectate or Pepto-Bismol. As the diarrhea eases, advance to small amounts of bland food (mashed potato, toast) for 24 hours. Call the physician if blood appears in your vomit or stool, if vomiting lasts longer than 24 hours, if the abdominal pain worsens or becomes localized to one area, if you develop high fever, or if you become lightheaded and weak. VIRAL SYNDROME: The physician has diagnosed a viral infection. Viruses not only cause "colds," but can cause many different symptoms including generalized aching, fever, headache, cough, diarrhea, nausea, vomiting, and fatigue. The treatment, for the most part, is simply relief of symptoms. This means that antibiotics are usually not given. Rest, fluids, pain medications and, occasionally, medication for the specific symptoms that are most bothersome will be prescribed. Use good handwashing to avoid passing the virus to others. Shared toys should be cleaned with disinfectant. Clean the toilets, sinks, and counter surfaces in bathrooms. Launder clothing in hot water. Contact the physician if you develop any new or unusual symptoms such as severe headache, stiff neck, high fever, chest pain, productive cough, or shortness of breath. You should be rechecked if you don't see marked improvement within seven to 10 days. INTRAVENOUS (I V) FLUIDS: As part of your care today, you received intravenous (IV) fluids. IV fluids are administered to patients who are dehydrated or to those who have certain chemical (electrolyte) abnormalities that need correcting. ANTINAUSEA MEDICATION: You have been given a medication to suppress nausea and vomiting. This type of medication can be given as a shot, pill, or suppository. It will usually last for many hours. Pills and shots usually last six to eight hours. For the typical illness, only one or two doses of the medication may be necessary. Mild lightheadedness may occur. This type of medicine can cause drowsiness. Do not drive or operate dangerous machinery while under its influence. Do not mix with alcohol. See your doctor at once if you have muscle spasms or tightness, or uncontrollable motions (particularly of the neck, mouth, or jaw). Persistent vomiting or severe lightheadedness should also be evaluated by the physician. FOLLOW-UP CARE: If you have been referred to a physician for follow-up care, call the physician s office for an appointment as you were instructed or within the next two days. If you experience worsening or a significant change in your symptoms, notify the physician immediately or return to the Emergency Department at any time for re-evaluation. Prescriptions: Ondansetron HCl [Zofran 4 mg Tablet] 1 - 2 tab PO Q6 PRN #15 tablet PRN Reason: Forms: Follow-Up Laboratory Testing, Return to Work
[2017-08-03 16:05] LABS: ALANINE AMINOTRANSFERASE 27 U/L (9-52); ALBUMIN 4.4 g/dL (3.5-5.0); ALKALINE PHOSPHATASE 67 U/L (38-126); ANION GAP 12 (5-19); ASPARTATE AMINO TRANSFERASE 20 U/L (14-36); BILIRUBIN,DIRECT 0.3 mg/dL (0.0-0.4); BILIRUBIN,TOTAL 0.7 mg/dL (0.2-1.3); BLOOD UREA NITROGEN 12 mg/dL (7-20); CALCIUM 9.6 mg/dL (8.4-10.2); CARBON DIOXIDE 21 mmol/L (22-30); CHLORIDE 110 mmol/L (98-107); GLUCOSE 82 mg/dL (75-110); LIPASE 50.9 U/L (23-300); POTASSIUM 4.7 mmol/L (3.6-5.0); SODIUM 142.9 mmol/L (137-145); TOTAL PROTEIN 7.4 g/dL (6.3-8.2)
[2017-08-03] MEDS ORDERED: CEFTRIAXONE INJ 250 MG VIAL IV ONE (16:29)
[2017-08-03] MEDS ORDERED: AZITHROMYCIN 250 MG TABLET PO ONE (16:30)
[2017-08-03 16:54] LABS: APPEARANCE,URINE CLEAR; BILIRUBIN,URINE NEGATIVE (NEGATIVE); COLOR,URINE YELLOW; GLUCOSE, URINE NEGATIVE (NEGATIVE); KETONES,URINE 20 mg/dL (NEGATIVE); LEUKOCYTE ESTERASE,URINE NEGATIVE (NEGATIVE); NITRITE,URINE NEGATIVE (NEGATIVE); PROTEIN,URINE NEGATIVE (NEGATIVE); URINE SPECIFIC GRAVITY 1.017; UROBILINOGEN,URINE NEGATIVE mg/dL (<2.0)
[2017-08-03 16:55] LABS: BACTERIA (WET MOUNT) 3+ BACTERIA SEEN; EPITHELIALS (WET MOUNT) 3+ EPITHELIALS SEEN; RBCS (WET MOUNT) FEW RBCS SEEN; T.VAGINALIS (WET MOUNT) NO TRICHOMONAS SEEN; WBCS (WET MOUNT) FEW WBCS SEEN; YEAST (WET MOUNT) NO YEAST SEEN
[2017-08-03] MEDS ORDERED: METOCLOPRAMIDE HCL INJ/PF 10 MG/2 ML SDV IV ONE (17:56)
[2017-08-03 18:20] LABS: CHLAM PCR NOT DETECTED (NOT DETECT); GON PCR NOT DETECTED (NOT DETECT)
== END 2017-08-03 19:10 | disposition home or self-care (01) ==
LOC: ER 13:08
DX: R11.2 Nausea with vomiting, unspecified (principal); R19.7 Diarrhea, unspecified; R10.817 Generalized abdominal tenderness; R10.9 Unspecified abdominal pain
CPT/HCPCS: 99284; 96361; 96375; 96365; 36415; 87210; 83690; 84703; 85025; 80053; 81001; 87491; 87591; J2765; J2405; J7030; J0696

== ENCOUNTER 2017-10-16 10:04 | Emergency (ER) | payer MEDICAID ==
[2017-10-16 10:18] VITALS: BP 119/65
[2017-10-16] MEDS ORDERED: ACETAMINOPHEN 325 MG TABLET PO ONE (11:36)
[2017-10-16 12:33] LABS: APPEARANCE,URINE CLEAR; BILIRUBIN,URINE NEGATIVE (NEGATIVE); COLOR,URINE YELLOW; GLUCOSE, URINE NEGATIVE (NEGATIVE); KETONES,URINE NEGATIVE (NEGATIVE); LEUKOCYTE ESTERASE,URINE NEGATIVE (NEGATIVE); NITRITE,URINE NEGATIVE (NEGATIVE); PROTEIN,URINE NEGATIVE (NEGATIVE); URINE SPECIFIC GRAVITY 1.028
--- NOTE | 2017-10-16 13:05 | ER Document Report ---
ED General - General Chief Complaint: Nausea/Vomiting Stated Complaint: HEADACHE, NAUSEA, ABDOMINAL CRAMPING Time Seen by Provider: 10/16/17 11:35 Notes: Pt presents with abd cramping and nausea. no period for two months. also has mata. nothing makes better or worse. no radiation of the pain. pain moderate and intermittent. TRAVEL OUTSIDE OF THE [place] IN LAST 30 DAYS: No - Related Data Allergies/Adverse Reactions: Penicillins Allergy (Verified 08/03/17 13:36) Past Medical History - General Information source: Patient - Social History Smoking Status: Former Smoker Chew tobacco use (# tins/day): No Frequency of alcohol use: None Drug Abuse: None Family History: Reviewed & Not Pertinent Patient has suicidal ideation: No Patient has homicidal ideation: No Renal/ Medical History: Denies: Hx Peritoneal Dialysis Past Surgical History: Reports: Hx Section - Immunizations Hx Diphtheria, Pertussis, Tetanus Vaccination: Yes Review of Systems - Review of Systems Constitutional: denies: Chills, Fever Cardiovascular: denies: Chest pain, Palpitations Respiratory: denies: Cough, Short of breath -: Yes All other systems reviewed and negative Physical Exam - Vital signs Vitals: Temp Pulse Resp BP Pulse Ox 98.8 F 85 16 119/65 98 10/16/17 10:15 10/16/17 10:15 10/16/17 10:15 10/16/17 10:15 10/16/17 10:15 Interpretation: Normal - General General appearance: Appears well, Alert - HEENT Head: Normocephalic, Atraumatic Eyes: Normal Pupils: PERRL - Respiratory Respiratory status: No respiratory distress Chest status: Nontender Breath sounds: Normal Chest palpation: Normal - Cardiovascular Rhythm: Regular Heart sounds: Normal auscultation Murmur: No - Abdominal Inspection: Normal Distension: No distension Bowel sounds: Normal Tenderness: Nontender Organomegaly: No organomegaly - Back Back: Normal, Nontender - Extremities General upper extremity: Normal inspection, Nontender, Normal color, Normal ROM , Normal temperature General lower extremity: Normal inspection, Nontender, Normal color, Normal ROM , Normal temperature, Normal weight bearing. No: Ramón's sign - Neurological Neuro grossly intact: Yes Cognition: Normal Orientation: AAOx4 [place] Coma Scale Eye Opening: Spontaneous Angelica Coma Scale Verbal: Oriented Angel[place] Coma Scale Motor: Obeys Commands Angelica Coma Scale Total: 15 Speech: Normal Motor strength normal: LUE, RUE, LLE, RLE Sensory: Normal - Psychological Associated symptoms: Normal affect, Normal mood - Skin Skin Temperature: Warm Skin Moisture: Dry Skin Color: Normal Course - Vital Signs Vital signs: Temp Pulse Resp BP Pulse Ox 98.8 F 85 16 119/65 98 10/16/17 10:15 10/16/17 10:15 10/16/17 10:15 10/16/17 10:15 10/16/17 10:15 - Laboratory Laboratory results interpreted by me: 10/16/17 11:53 Urine Blood SMALL H Urine Urobilinogen 2.0 H Discharge - Discharge Clinical Impression: Abdominal pain Qualifiers: Abdominal location: generalized Qualified Code(s): R10.84 - Generalized abdominal pain Headache Qualifiers: Headache type: unspecified Headache chronicity pattern: acute headache Intractability: not intractable Qualified Code(s): R51 - Headache Condition: Stable Disposition: HOME, SELF-CARE Instructions: Abdominal Pain ([facility]) Additional Instructions: Please call your primary as soon as possible to arrange follow up. Prescriptions: Butalb/Acetaminophen/Caffeine [Fioricet (50-325-40 mg) Tablet] 1 tab PO Q4HP PRN #30 tab PRN Reason: Forms: Return to Work Referrals: YANIQUE SCHWAB MD [COMMUNITY BASED STAFF] - Follow up in 1 week
== END 2017-10-16 13:15 | disposition home or self-care (01) ==
LOC: ER 10:04
DX: R10.84 Generalized abdominal pain (principal); R51 Headache; R11.2 Nausea with vomiting, unspecified; Z87.891 Personal history of nicotine dependence
CPT/HCPCS: 99284; 36415; 84703; 81001; J3490

== ENCOUNTER 2017-11-24 15:37 | Emergency (ER) | payer MEDICAID ==
--- NOTE | 2017-11-24 16:10 | ER Document Report ---
ED Medical Screen (RME) - General Chief Complaint: Abdominal Pain Stated Complaint: ABDOMINAL PAIN Time Seen by Provider: 11/24/17 16:01 Notes: 22-year-old female patient reports onset a few hours ago of sharp shooting lower abdominal pain. There is no nausea, vomiting, or diarrhea. Last menstrual period was 2 weeks ago and was normal. Patient was seen here on 10/16/2017 complaining of headache, nausea, and abdominal pain. She states that spontaneously resolved after her ER visit. I have greeted and performed a rapid initial assessment of this patient. A comprehensive ED assessment and evaluation of the patient, analysis of test results and completion of the medical decision making process will be conducted by additional ED providers. TRAVEL OUTSIDE OF THE [place] IN LAST 30 DAYS: No - Related Data Allergies/Adverse Reactions: Penicillins Allergy (Verified 11/24/17 15:41) Past Medical History - Social History Chew tobacco use (# tins/day): No Frequency of alcohol use: None Drug Abuse: None Renal/ Medical History: Denies: Hx Peritoneal Dialysis Past Surgical History: Reports: Hx Section - Immunizations Hx Diphtheria, Pertussis, Tetanus Vaccination: Yes History of Influenza Vaccine for 04/2017 - 09/2017 Season: Refused Physical Exam - Vital signs Vitals: Temp Pulse Resp BP Pulse Ox 98.5 F 88 16 121/62 98 11/24/17 15:51 11/24/17 15:51 11/24/17 15:51 11/24/17 15:51 11/24/17 15:51 Course - Vital Signs Vital signs: Temp Pulse Resp BP Pulse Ox 98.5 F 88 16 121/62 98 11/24/17 15:51 11/24/17 15:51 11/24/17 15:51 11/24/17 15:51 11/24/17 15:51
[2017-11-24] MEDS ORDERED: CEFTRIAXONE INJ 250 MG VIAL IM ONE (16:53)
[2017-11-24] MEDS ORDERED: AZITHROMYCIN 250 MG TABLET PO ONE (16:53)
[2017-11-24] MEDS ORDERED: LIDOCAINE 1% INJ-PF (10 MG/ML) 30 ML SDV INJ ONE (16:53)
--- NOTE | 2017-11-24 16:57 | ER Document Report ---
ED General - General Chief Complaint: Abdominal Pain Stated Complaint: ABDOMINAL PAIN Time Seen by Provider: 11/24/17 16:01 TRAVEL OUTSIDE OF THE [place] IN LAST 30 DAYS: No - HPI Notes: Patient is a 22-year-old female with no significant past medical history who presents to the ED complaining of the lower pelvic pain bilaterally that began about 5-1/2 hours ago. Patient states that the pain does not radiate. Patient states that she is eating and drinking without difficulties. She is urinating normally and having patient states that she does have some scant vaginal discharge which she believes is normal for her and does not have an odor. She has not had any vaginal bleeding. Patient states that if needed she is open to STD testing. Patient has an allergy to penicillins which causes a rash, but states that she has had Rocephin in the past. She has no other concerns or complaints. Denies any headache, fever, URI, sore throat, chest pain, palpitations, syncope, cough, shortness of breath, wheeze, dyspnea, nausea/ vomiting/diarrhea, urinary retention, dysuria, hematuria, back pain, loss of control of bowel or bladder, numbness/tingling, saddle anesthesia, muscle paralysis/weakness, or rash. - Related Data Allergies/Adverse Reactions: Penicillins Allergy (Verified 11/24/17 15:41) Past Medical History - Social History Smoking Status: Never Smoker Chew tobacco use (# tins/day): No Frequency of alcohol use: None Drug Abuse: None Family History: Reviewed & Not Pertinent Patient has suicidal ideation: No Patient has homicidal ideation: No Renal/ Medical History: Denies: Hx Peritoneal Dialysis Past Surgical History: Reports: Hx Section - Immunizations Hx Diphtheria, Pertussis, Tetanus Vaccination: Yes Review of Systems - Review of Systems -: Yes All other systems reviewed and negative Physical Exam - Vital signs Vitals: Temp Pulse Resp BP Pulse Ox 98.5 F 88 16 121/62 98 11/24/17 15:51 11/24/17 15:51 11/24/17 15:51 11/24/17 15:51 11/24/17 15:51 - Notes Notes: PHYSICAL EXAMINATION: GENERAL: Well-appearing, well-nourished and in no acute distress. HEAD: Atraumatic, normocephalic. EYES: Pupils equal round and reactive to light, extraocular movements intact, sclera anicteric, conjunctiva are normal. NECK: Normal range of motion, supple without lymphadenopathy LUNGS: Breath sounds clear to auscultation bilaterally and equal. No wheezes rales or rhonchi. HEART: Regular rate and rhythm without murmurs, rubs, gallops. ABDOMEN: Soft, nondistended abdomen. No guarding, no rebound. No masses appreciated. Normal bowel sounds present. No CVA tenderness bilaterally. Chavira neg. no tenderness at Mcburney point. + mild tenderness to the suprapubic area b/l. No inguinal adenopathy. : Pt declined pelvic exam, wants to do self-swab. Musculoskeletal: FROM to passive/active. Strength 5+/5. Extremities: No cyanosis, clubbing, or edema b/l. Peripheral pulses 2+. Capillary refill less than 3 seconds. NEUROLOGICAL: Normal speech, normal gait. Normal sensory, motor exams PSYCH: Normal mood, normal affect. SKIN: Warm, Dry, normal turgor, no rashes or lesions noted. Course - Re-evaluation Re-evalutation: 11/24/17 18:19 Patient is an afebrile, well-hydrated, 20-year-old female who presents to the ED with bacterial vaginosis. Vitals are acceptable. PE is otherwise unremarkable. CBC, CMP, urinalysis, hCG were unremarkable for any acute pathology. See wet mount results. Chlamydia and gonorrhea tests are pending. Patient was treated prophylactically with Zithromax and Rocephin. Transvaginal ultrasound was grossly unremarkable aside from visualization of the left ovary, but patient's symptoms are bilateral and do not coincide directly with an ovarian torsion at this time. Precautions reviewed. I will send her home with a prescription for Flagyl. Patient's abdomen is otherwise soft and nontender aside from the lower suprapubic area. Patient declined a pelvic exam today, but performed a self swab for us. Low suspicion for acute appendicitis, bowel obstruction, acute cholecystitis, acute cholangitis, perforated diverticulitis, incarcerated hernia, pancreatitis, perforated ulcer, peritonitis, sepsis, pelvic inflammatory disease, ectopic , tubo-ovarian abscess, obvious ovarian torsion, or other systemic emergent condition at this time. Patient is aware that her condition can change from initial presentation and she needs to monitor symptoms closely and seek medical attention if any acute changes. Conservative measures otherwise for symptoms. Recheck with OBGYN in 3-5 days. Recheck with your PCM in 3-5 days. Return to the ED with any worsening/ concerning symptoms otherwise as reviewed in discharge. Patient is in agreement. - Vital Signs Vital signs: Temp Pulse Resp BP Pulse Ox 98.5 F 88 16 121/62 98 11/24/17 15:51 11/24/17 15:51 11/24/17 15:51 11/24/17 15:51 11/24/17 15:51 - Laboratory Result Diagrams: 11/24/17 16:31 11/24/17 16:31 Laboratory results interpreted by me: 11/24/17 11/24/17 16:31 16:31 Seg Neuts % (Manual) 26 L Lymphocytes % (Manual) 69 H Abs Neuts (Manual) 1.6 L Urine Blood MODERATE H Discharge - Discharge Clinical Impression: Bacterial vaginosis Condition: Stable Disposition: HOME, SELF-CARE Instructions: Vaginosis, Bacterial ([facility]), Pelvic Pain ([facility]), Observation for Appendicitis ([facility]) Additional Instructions: maintain fluid intake Proper hygenic technique Keep the skin clean Safe sexual practices with condoms everytime Tylenol/ibuprofen as needed Check in with the health department this week for further testing Your chlamydia/Ghon test are pending and you will be notified if positive results; you may call in 1 day for the results as well Return immediately if symptoms worsen F/u with your PCM/OBGYN in 3-5 days for a recheck Return to the ED with any development of NICOLAS/fever, trouble with vision, eye redness, worsening pain, urethral discharge, urinary retention, blood in the urine, flank pain, worsening abdominal pain, n/v, Chest Pain, shortness of breath, joint pains, trouble breathing, or any other worsening/concerning symptoms as needed otherwise. Prescriptions: Metronidazole [Flagyl] 500 mg PO BID #14 tablet Referrals: [facility] [Provider Group] - Follow up in 3-5 days
[2017-11-24 17:02] LABS: APPEARANCE,URINE SLIGHTLY-CLOUDY; BILIRUBIN,URINE NEGATIVE (NEGATIVE); CALCIUM OXALATE CRYSTALS,URINE MODERATE /HPF; COLOR,URINE YELLOW; GLUCOSE, URINE NEGATIVE (NEGATIVE); KETONES,URINE NEGATIVE (NEGATIVE); LEUKOCYTE ESTERASE,URINE NEGATIVE (NEGATIVE); NITRITE,URINE NEGATIVE (NEGATIVE); PROTEIN,URINE NEGATIVE (NEGATIVE); URINE SPECIFIC GRAVITY 1.023; UROBILINOGEN,URINE NEGATIVE mg/dL (<2.0)
[2017-11-24 17:19] LABS: HEMATOCRIT 37.7 % (36.0-47.0); HEMOGLOBIN 12.5 g/dL (12.0-15.5); MEAN CORPUSCULAR HEMOGLOBIN 30.3 pg (27.0-33.4); MEAN CORPUSCULAR HGB CONC 33.3 g/dL (32.0-36.0); MEAN CORPUSCULAR VOLUME 91 fl (80-97); PLATELET COUNT 439 10^3/uL (150-450); RED BLOOD COUNT 4.13 10^6/uL (3.72-5.28); RED CELL DISTRIBUTION WIDTH 12.7 % (11.5-14.0); WHITE BLOOD COUNT 6.2 10^3/uL (4.0-10.5)
[2017-11-24 17:21] LABS: BACTERIA (WET MOUNT) 4+ BACTERIA SEEN; EPITHELIALS (WET MOUNT) 4+ EPITHELIALS SEEN; T.VAGINALIS (WET MOUNT) NO TRICHOMONAS SEEN; WBCS (WET MOUNT) RARE WBCS SEEN; YEAST (WET MOUNT) NO YEAST SEEN
[2017-11-24 17:21] LABS: ALANINE AMINOTRANSFERASE 19 U/L (9-52); ALBUMIN 4.2 g/dL (3.5-5.0); ALKALINE PHOSPHATASE 73 U/L (38-126); ANION GAP 10 (5-19); ASPARTATE AMINO TRANSFERASE 19 U/L (14-36); BILIRUBIN,DIRECT 0.2 mg/dL (0.0-0.4); BILIRUBIN,TOTAL 0.2 mg/dL (0.2-1.3); BLOOD UREA NITROGEN 7 mg/dL (7-20); CALCIUM 9.8 mg/dL (8.4-10.2); CARBON DIOXIDE 29 mmol/L (22-30); CHLORIDE 104 mmol/L (98-107); GLUCOSE 88 mg/dL (75-110); POTASSIUM 4.3 mmol/L (3.6-5.0); SODIUM 143.2 mmol/L (137-145); TOTAL PROTEIN 7.1 g/dL (6.3-8.2)
[2017-11-24 17:55] LABS: BASOPHILS % (MANUAL) 0 % (0-2); TOTAL CELLS COUNTED 100
[2017-11-24 17:56] LABS: PLATELET COMMENT ADEQUATE
[2017-11-24 17:59] LABS: ABSOLUTE LYMPHOCYTES# (MANUAL) 4.3 10^3/uL (0.5-4.7); ABSOLUTE MONOCYTES # (MANUAL) 0.2 10^3/uL (0.1-1.4); ABSOLUTE NEUTROPHILS# (MANUAL) 1.6 10^3/uL (1.7-8.2); EOSINOPHILS % (MANUAL) 2 % (0-6); LYMPHOCYTES % (MANUAL) 69 % (13-45); MONOCYTES % (MANUAL) 3 % (3-13); SEGMENTED NEUTROPHILS % (MAN) 26 % (42-78)
[2017-11-24 18:00] LABS: RBC MORPHOLOGY COMMENT NORMO-CYTIC/CHROMIC
--- NOTE | 2017-11-24 18:11 | RADIOLOGY REPORT (SQ) ---
EXAM DESCRIPTION: U/S NON OB PEL TV W/DOPPLER COMPLETED DATE/TIME: 11/24/2017 5:57 pm REASON FOR STUDY: pelvic pain COMPARISON: None. TECHNIQUE: Dynamic and static grayscale images acquired of the pelvis via transvaginal approach and recorded on PACS. Additional selected color Doppler and spectral images recorded. LIMITATIONS: None. FINDINGS: UTERUS: Contour normal. No mass. ENDOMETRIAL STRIPE: No focal or generalized thickening. No masses. CERVIX: No nabothian cysts. RIGHT ADNEXUM: No abnormal masses. RIGHT OVARY AND DOPPLER: Normal size. No worrisome masses. Normal arterial vascular flow without sanjay dence for torsion. LEFT ADNEXUM: Ovary not visualized. FREE FLUID: None noted. OTHER: No other significant finding. MEASUREMENTS: UTERUS: 9 x 4 x 4 cm ENDOMETRIAL STRIPE: 5.5 mm RIGHT OVARY: 3 x 2 x 3 cm LEFT OVARY: Not seen. IMPRESSION: Allowing for nonvisualization of the left ovary, normal transvaginal pelvic ultrasound. TECHNICAL DOCUMENTATION: JOB ID: [id number] [employer]- All Rights Reserved Reading location - IP/workstation name: [email or web address]
[2017-11-24 18:41] LABS: CHLAM PCR NOT DETECTED (NOT DETECT); GON PCR NOT DETECTED (NOT DETECT)
[2017-11-24 18:44] VITALS: BP 116/60
== END 2017-11-24 18:44 | disposition home or self-care (01) ==
LOC: ER 15:37
DX: N39.0 Urinary tract infection, site not specified (principal); B96.89 Other specified bacterial agents as the cause of diseases classified elsewhere; R10.2 Pelvic and perineal pain; Z88.0 Allergy status to penicillin
CPT/HCPCS: 99284; 96372; 36415; 87210; 84703; 85025; 80053; 81001; 87491; 87591; 76830; 93976; Q0144; J3490; J0696

== ENCOUNTER 2018-02-10 16:45 | Emergency (ER) | payer MEDICAID ==
--- NOTE | 2018-02-10 17:48 | ER Document Report ---
ED Medical Screen (RME) - General Chief Complaint: Abdominal Pain Stated Complaint: ABDOMINAL PAIN Time Seen by Provider: 02/10/18 17:43 Mode of Arrival: Ambulatory Information source: Patient Notes: pt c/o vaginal discharge, itchy, irritation, possible std for the past three days. denies v/d/f, denies abd. pain. TRAVEL OUTSIDE OF THE [place] IN LAST 30 DAYS: No - Related Data Allergies/Adverse Reactions: Penicillins Allergy (Verified 02/10/18 16:46) Past Medical History - Social History Chew tobacco use (# tins/day): No Frequency of alcohol use: Occasional Drug Abuse: None Renal/ Medical History: Denies: Hx Peritoneal Dialysis Past Surgical History: Reports: Hx Section - Immunizations Hx Diphtheria, Pertussis, Tetanus Vaccination: Yes History of Influenza Vaccine for 04/2017 - 09/2017 Season: Refused Physical Exam - Vital signs Vitals: Temp Pulse Resp BP Pulse Ox 98.7 F 54 L 18 147/84 H 100 02/10/18 17:11 02/10/18 17:11 02/10/18 17:11 02/10/18 17:11 02/10/18 17:11 Course - Vital Signs Vital signs: Temp Pulse Resp BP Pulse Ox 98.7 F 54 L 18 147/84 H 100 02/10/18 17:11 02/10/18 17:11 02/10/18 17:11 02/10/18 17:11 02/10/18 17:11
[2018-02-10 18:22] LABS: APPEARANCE,URINE SLIGHTLY-CLOUDY; BILIRUBIN,URINE NEGATIVE (NEGATIVE); COLOR,URINE YELLOW; GLUCOSE, URINE NEGATIVE (NEGATIVE); KETONES,URINE NEGATIVE (NEGATIVE); LEUKOCYTE ESTERASE,URINE NEGATIVE (NEGATIVE); NITRITE,URINE POSITIVE (NEGATIVE); PROTEIN,URINE NEGATIVE (NEGATIVE); URINE SPECIFIC GRAVITY 1.023
[2018-02-10 18:23] LABS: T.VAGINALIS (WET MOUNT) NO TRICHOMONAS SEEN
[2018-02-10 18:24] LABS: BACTERIA (WET MOUNT) 3+ BACTERIA SEEN; EPITHELIALS (WET MOUNT) 3+ EPITHELIALS SEEN; WBCS (WET MOUNT) FEW WBCS SEEN; YEAST (WET MOUNT) COULD NOT PERFORM
[2018-02-10 19:46] LABS: CHLAM PCR NOT DETECTED (NOT DETECT); GON PCR NOT DETECTED (NOT DETECT)
[2018-02-10] MEDS ORDERED: FLUCONAZOLE 100 MG TABLET PO ONE (20:43)
--- NOTE | 2018-02-10 20:47 | ER Document Report ---
ED GI/ - General Chief Complaint: Abdominal Pain Stated Complaint: ABDOMINAL PAIN Time Seen by Provider: 02/10/18 17:43 Mode of Arrival: Ambulatory Information source: Patient Notes: Patient is a 22 year old female who presents to the ER today for lower abdominal pain, white, thick, itchy discharge 2 days. Patient denies any vaginal bleeding, fevers or chills. She is concerned about STDs today. She denies any dysuria, low back pain. She denies nausea or vomiting. TRAVEL OUTSIDE OF THE [place] IN LAST 30 DAYS: No - Related Data Allergies/Adverse Reactions: Penicillins Allergy (Verified 02/10/18 16:46) Past Medical History - General Information source: Patient - Social History Smoking Status: Current Every Day Smoker Chew tobacco use (# tins/day): No Frequency of alcohol use: Occasional Drug Abuse: None Family History: Reviewed & Not Pertinent Patient has suicidal ideation: No Patient has homicidal ideation: No Renal/ Medical History: Denies: Hx Peritoneal Dialysis Past Surgical History: Reports: Hx Section - Immunizations Hx Diphtheria, Pertussis, Tetanus Vaccination: Yes Review of Systems - Review of Systems Constitutional: No symptoms reported EENT: No symptoms reported Cardiovascular: No symptoms reported Respiratory: No symptoms reported Gastrointestinal: No symptoms reported Genitourinary: No symptoms reported Female Genitourinary: See HPI Musculoskeletal: No symptoms reported Skin: No symptoms reported Hematologic/Lymphatic: No symptoms reported Neurological/Psychological: No symptoms reported Physical Exam - Vital signs Vitals: Temp Pulse Resp BP Pulse Ox 98.7 F 54 L 18 147/84 H 100 02/10/18 17:11 02/10/18 17:11 02/10/18 17:11 02/10/18 17:11 02/10/18 17:11 - Notes Notes: PHYSICAL EXAMINATION: GENERAL: Well-appearing and in no acute distress. HEAD: Atraumatic, normocephalic. EYES: Pupils equal round and reactive to light, extraocular movements intact, sclera anicteric, conjunctiva are normal. NECK: Normal range of motion, supple without lymphadenopathy LUNGS: CTAB and equal. No wheezes rales or rhonchi. HEART: Regular rate and rhythm without murmurs ABDOMEN: Soft, no tenderness. No guarding, no rebound BACK: no vertebral tenderness, normal ROM Pelvic: Declined GI/: no CVA tenderness EXTREMITIES: Normal range of motion, no pitting edema. No cyanosis. NEUROLOGICAL: Cranial nerves grossly intact. Normal sensory/motor exams. PSYCH: Normal mood, normal affect. SKIN: Warm, Dry, normal turgor, no rashes or lesions noted Course - Re-evaluation Re-evalutation: 02/10/18 20:45 That her injury patient is describing yeast infection, got better on Monistat and then got worse again after I asked her on reexamination.Patient has nitrites in her urinalysis today, I will treat her for urinary tract infection although she is asymptomatic except for bladder pain. Patient will be given Diflucan here, another to go home with to take in 3 days and then 1 after her antibiotic finishes. - Vital Signs Vital signs: Temp Pulse Resp BP Pulse Ox 98.7 F 54 L 18 147/84 H 100 02/10/18 17:11 02/10/18 17:11 02/10/18 17:11 02/10/18 17:11 02/10/18 17:11 - Laboratory Laboratory results interpreted by me: 02/10/18 17:54 Urine Nitrite POSITIVE H Urine Urobilinogen 2.0 H Discharge - Discharge Clinical Impression: Yeast infection UTI (urinary tract infection) Qualifiers: Urinary tract infection type: acute cystitis Hematuria presence: without hematuria Qualified Code(s): N30.00 - Acute cystitis without hematuria Condition: Stable Disposition: HOME, SELF-CARE Instructions: Urinary Tract Infection ([facility]), Nitrofurantoin ([facility]) Additional Instructions: Return immediately for any new or worsening symptoms. Follow up with primary care provider, call tomorrow to make followup appointment. Prescriptions: Fluconazole [Diflucan 100 Mg Tablet] 100 mg PO DAILY #2 tablet Nitrofurantoin Monohyd/M-Cryst [Macrobid 100 mg Capsule] 100 mg PO BID #10 capsule
[2018-02-10 21:20] VITALS: BP 169/84
== END 2018-02-10 21:18 | disposition home or self-care (01) ==
LOC: ER 16:45
DX: N30.00 Acute cystitis without hematuria (principal); B37.9 Candidiasis, unspecified; F17.200 Nicotine dependence, unspecified, uncomplicated; Z88.0 Allergy status to penicillin
CPT/HCPCS: 99284; 87210; 81025; 81001; 87491; 87591; J3490

== ENCOUNTER 2018-05-11 10:58 | Emergency (ER) | payer MEDICAID ==
--- NOTE | 2018-05-11 11:18 | ER Document Report ---
ED Medical Screen (RME) - General Chief Complaint: Pelvic Pain Stated Complaint: ABDOMINAL PAIN Time Seen by Provider: 05/11/18 11:12 Mode of Arrival: Ambulatory Information source: Patient TRAVEL OUTSIDE OF THE [place] IN LAST 30 DAYS: No - HPI Patient complains to provider of: dysuria Onset: Other - This 22-year-old female with a history of constipation in the past who presents for evaluation of dysuria after having started to have some burning at the end of voiding following intercourse a few days prior. Since then she is continued to have a sensation of some burning upon voiding. She has not tried anything to help with this. It is similar to an episode in the past in which she was diagnosed with urinary tract infection. Denies any nausea, vomiting, diarrhea does endorse some constipation denies any fevers or chills. - Related Data Allergies/Adverse Reactions: Penicillins Allergy (Verified 05/11/18 11:20) Past Medical History - General Information source: Patient Renal/ Medical History: Denies: Hx Peritoneal Dialysis Past Surgical History: Reports: Hx Section - Immunizations Hx Diphtheria, Pertussis, Tetanus Vaccination: Yes History of Influenza Vaccine for 04/2017 - 09/2017 Season: Refused Physical Exam - Vital signs Vitals: Temp Pulse Resp BP Pulse Ox 98.8 F 60 16 136/78 H 100 05/11/18 11:04 05/11/18 11:04 05/11/18 11:04 05/11/18 11:04 05/11/18 11:04 - General General appearance: Appears well In distress: None - HEENT Head: Normocephalic Eyes: Normal Conjunctiva: Normal Cornea: Normal Extraocular movements intact: Yes Eyelashes: Normal Pupils: PERRL - Respiratory Respiratory status: No respiratory distress Chest status: Nontender Breath sounds: Normal Chest palpation: Normal - Cardiovascular Rhythm: Regular Heart sounds: Normal auscultation Murmur: No - Abdominal Inspection: Normal Distension: No distension Tenderness: Nontender - Back Back: Normal - Extremities General upper extremity: Normal inspection, Nontender, Normal ROM, Normal strength General lower extremity: Normal inspection, Nontender, Normal ROM, Normal strength - Neurological Neuro grossly intact: Yes Cognition: Normal Orientation: AAOx4 [place] Coma Scale Eye Opening: Spontaneous [place] Coma Scale Verbal: Oriented [place] Coma Scale Motor: Obeys Commands Angel[place] Coma Scale Total: 15 Speech: Normal Cranial nerves: Normal Motor strength normal: LUE, RUE, LLE, RLE - Psychological Associated symptoms: Normal affect Course - Re-evaluation Re-evalutation: 05/11/18 13:37 This well-appearing 22-year-old female that had slight burning with urination. The pain she is having was most noticeable for her after intercourse. She does not take anything try and help with this, does feel similar to previous UTIs in the past. Her abdominal examination is entirely benign, she has no rebound no guarding no obvious focal tenderness. Does have modest suprapubic tenderness to deep palpation. We will obtain urinalysis, will obtain swabs. Urinalysis demonstrates slight bacteriuria, her pelvic swabs do not demonstrate any gonorrhea or chlamydia. Believe she is safe for discharge with outpatient management of her possible cystitis, she was also given a prescription for Azo as this may be urethral irritation. She was given return precautions related to possible pyelonephritis developing. She was discharged in the care of her with return precautions. - Vital Signs Vital signs: Temp Pulse Resp BP Pulse Ox 98.8 F 60 16 136/78 H 100 05/11/18 11:04 05/11/18 11:04 05/11/18 11:04 05/11/18 11:04 05/11/18 11:04 - Laboratory Laboratory results interpreted by me: 05/11/18 11:05 Urine Blood SMALL H Ur Leukocyte Esterase TRACE H Doctor's Discharge - Discharge Clinical Impression: Dysuria, Dyspareunia Urinary tract infection Qualifiers: Urinary tract infection type: acute cystitis Hematuria presence: without hematuria Qualified Code(s): N30.00 - Acute cystitis without hematuria Condition: Good Disposition: HOME, SELF-CARE Instructions: Nitrofurantoin ([facility]), Antibiotic Therapy ([facility]), Urinary Anesthetic Agent ([facility]) Prescriptions: Fluconazole [Diflucan 100 Mg Tablet] 100 mg PO DAILY #1 tablet Nitrofurantoin Macrocrystal [Macrodantin] 100 mg PO BID #20 capsule Phenazopyridine HCl [Azo Urinary Pain Relief] 97.5 mg PO DAILY #20 tablet Forms: Return to Work
[2018-05-11 12:03] LABS: APPEARANCE,URINE SLIGHTLY-CLOUDY; BILIRUBIN,URINE NEGATIVE (NEGATIVE); COLOR,URINE YELLOW; GLUCOSE, URINE NEGATIVE (NEGATIVE); KETONES,URINE NEGATIVE (NEGATIVE); LEUKOCYTE ESTERASE,URINE TRACE (NEGATIVE); NITRITE,URINE NEGATIVE (NEGATIVE); PROTEIN,URINE NEGATIVE (NEGATIVE); URINE SPECIFIC GRAVITY 1.019; UROBILINOGEN,URINE NEGATIVE mg/dL (<2.0)
[2018-05-11 13:27] LABS: CHLAM PCR NOT DETECTED (NOT DETECT); GON PCR NOT DETECTED (NOT DETECT)
[2018-05-11 13:32] VITALS: BP 142/82
== END 2018-05-11 13:36 | disposition home or self-care (01) ==
LOC: ER 10:58
DX: N30.00 Acute cystitis without hematuria (principal); R30.0 Dysuria; N94.10 Unspecified dyspareunia; R10.2 Pelvic and perineal pain
CPT/HCPCS: 81001; 81025; 87086; 87088; 87186; 87491; 87591; 99284

== ENCOUNTER 2018-07-23 12:34 | Emergency (ER) | payer MEDICAID ==
--- NOTE | 2018-07-23 13:58 | ER Document Report ---
ED General - General Chief Complaint: Lower Abdominal Pain Stated Complaint: ABDOMINAL PAIN, BACK PAIN Time Seen by Provider: 07/23/18 13:42 Mode of Arrival: Ambulatory Information source: Patient Notes: 22-year-old female with no reported past medical history at approximately 11 weeks gestation per her report of last menstrual period in the middle of last April. Patient states this morning she had 2 home positive test. She complains of some mild cramping bilaterally and some low back pain but denies dysuria, vaginal discharge, fever, chills, nausea, vomiting. Patient has not sought care yet. She reports a healthy first which did require . TRAVEL OUTSIDE OF THE [place] IN LAST 30 DAYS: No - HPI Onset: This morning Quality of pain: Cramping Severity: Mild Associated symptoms: Other - Denies vaginal bleeding. denies: Fever, Nausea, Vomiting Exacerbated by: Denies Relieved by: Denies Similar symptoms previously: No Recently seen / treated by doctor: No - Related Data Allergies/Adverse Reactions: Penicillins Allergy (Verified 07/23/18 12:35) Past Medical History - General Information source: Patient - Social History Smoking Status: Current Some Day Smoker Cigarette use (# per day): Yes - 2 Chew tobacco use (# tins/day): No Smoking Education Provided: Yes - Smoking cessation counseling was provided for 4 minutes at the bedside Frequency of alcohol use: Rare Drug Abuse: None Lives with: Family Family History: Reviewed & Not Pertinent Patient has suicidal ideation: No Patient has homicidal ideation: No - Medical History Medical History: Negative Renal/ Medical History: Denies: Hx Peritoneal Dialysis Past Surgical History: Reports: Hx Section - x1 - Immunizations Hx Diphtheria, Pertussis, Tetanus Vaccination: Yes Review of Systems - Review of Systems Notes: REVIEW OF SYSTEMS: CONSTITUTIONAL : Denies fever, chills, or sweats. Denies recent illness. Denies weight loss, recent hospitalizations. EENT: Denies visual changes, eye pain. Denies sore throat, oral lesions, difficulty swallowing. CARDIOVASCULAR: Denies chest pain. Denies palpitations. Denies lower extremity edema. RESPIRATORY: Denies cough. Denies shortness of breath, wheezing. GASTROINTESTINAL: Denies abdominal distention. Denies nausea, vomiting, or diarrhea. Denies blood in vomitus, stools, or per rectum. Denies black, tarry stools. Denies constipation. GENITOURINARY: Denies difficulty urinating, painful urination, frequency, blood in urine, or vaginal discharge. MUSCULOSKELETAL: Denies neck pain or stiffness. Denies joint pain or swelling. SKIN: Denies rash, lesions or sores. HEMATOLOGIC : Denies easy bruising or bleeding. LYMPHATIC: Denies swollen glands. NEUROLOGICAL: Denies confusion or altered mental status. Denies loss of consciousness. Denies dizziness or lightheadedness. Denies headache. Denies weakness or paralysis. Denies problems difficulty with ambulation, slurred speech. Denies sensory loss, numbness, or tingling. Denies seizures. PSYCHIATRIC: Denies anxiety or stress. Denies depression, suicidal ideation, or homicidal ideation. Denies visual or auditory hallucinations. PHYSICAL EXAMINATION: GENERAL: Well-appearing, well-nourished and in no acute distress. HEAD: Atraumatic, normocephalic. EYES: Pupils equal round and reactive to light, extraocular movements intact, conjunctiva are normal. ENT: Nares patent, oropharynx clear without exudates. Moist mucous membranes. NECK: Normal range of motion, supple without lymphadenopathy LUNGS: Breath sounds clear to auscultation bilaterally and equal. No wheezes rales or rhonchi. HEART: Regular rate and rhythm without murmurs ABDOMEN: Soft, nontender, nondistended abdomen. No guarding, no rebound. No masses appreciated. Female : deferred Musculoskeletal: Normal range of motion, no pitting or edema. No cyanosis. NEUROLOGICAL: Cranial nerves grossly intact. Normal speech, normal gait. Normal sensory, motor exams PSYCH: Normal mood, normal affect. SKIN: Warm, Dry, normal turgor, no rashes or lesions noted. Physical Exam - Vital signs Vitals: Temp Pulse Resp BP Pulse Ox 99.2 F 90 16 132/66 H 100 07/23/18 12:48 07/23/18 12:48 07/23/18 12:48 07/23/18 12:48 07/23/18 12:48 - Notes Notes: PHYSICAL EXAMINATION: GENERAL: Well-appearing, well-nourished and in no acute distress. HEAD: Atraumatic, normocephalic. EYES: Pupils equal round and reactive to light, extraocular movements intact, conjunctiva are normal. ENT: Nares patent, oropharynx clear without exudates. Moist mucous membranes. NECK: Normal range of motion, supple without lymphadenopathy LUNGS: Breath sounds clear to auscultation bilaterally and equal. No wheezes rales or rhonchi. HEART: Regular rate and rhythm without murmurs ABDOMEN: Soft, nontender, nondistended abdomen. No guarding, no rebound. No masses appreciated. Female : deferred Musculoskeletal: Normal range of motion, no pitting or edema. No cyanosis. NEUROLOGICAL: Cranial nerves grossly intact. Normal speech, normal gait. Normal sensory, motor exams PSYCH: Normal mood, normal affect. SKIN: Warm, Dry, normal turgor, no rashes or lesions noted. Course - Re-evaluation Re-evalutation: 07/23/18 23:07 Laboratory 07/23/18 07/23/18 07/23/18 12:50 15:07 15:07 WBC 8.7 RBC 4.09 Hgb 12.7 Hct 37.4 MCV 92 MCH 31.0 MCHC 33.9 RDW 12.8 Plt Count 404 Seg Neutrophils % 46.2 Lymphocytes % 44.9 Monocytes % 6.4 Eosinophils % 1.6 Basophils % 0.9 Absolute Neutrophils 4.0 Absolute Lymphocytes 3.9 Absolute Monocytes 0.6 Absolute Eosinophils 0.1 Absolute Basophils 0.1 Beta HCG, Quant 153.08 H Total Beta HCG POSITIVE Urine Color STRAW Urine Appearance CLEAR Urine pH 7.0 Ur Specific [place] 1.010 Urine Protein NEGATIVE Urine Glucose (UA) NEGATIVE Urine Ketones NEGATIVE Urine Blood SMALL H Urine Nitrite NEGATIVE Urine Bilirubin NEGATIVE Urine Urobilinogen NEGATIVE Ur Leukocyte Esterase NEGATIVE Urine RBC (Auto) 4 Squamous Epi Cells Auto 1 Urine Mucus (Auto) RARE Urine Ascorbic Acid NEGATIVE Temp Pulse Resp BP Pulse Ox 98.9 F 84 16 136/62 H 99 07/23/18 16:46 07/23/18 16:46 07/23/18 16:46 07/23/18 16:46 07/23/18 16:46 22-year-old female presents with request for confirmation despite 2+ test at home. Reports mild abdominal cramping. Denies any vaginal bleeding. Is unable to tell me when her last menstrual period was. Vital signs stable upon arrival. Abdomen benign. Patient declining pelvic exam. Patient was heard talking on the phone with her significant other stating "I told you I would prove it to you". Patient's beta quant is 158. Her abdominal exam, lack of vaginal bleeding does not warrant transvaginal ultrasound at this time. Patient was informed to return in 48 hours for repeat hCG. vitamins were prescribed. Patient was discharged home in stable condition. Patient was evaluated and treated as appropriate for the patient's presenting symptoms and complaint, with consideration of any critical or life threatening conditions that may be associated with their obtained history and exam as noted above. All results were discussed with patient . Patient provided the opportunity to ask questions, and express concerns. Patient was educated on treatments based on their presumed diagnosis as noted above. At this time we will discharge the patient with return precautions and follow-up recommendations. Verbal discharge instructions given a the bedside. Medication warnings reviewed. Patient is in agreement with this plan and has verbalized understanding of return precautions. After careful consideration I feel that that patient can be safely discharged from the emergency department, they were advised to followup with a primary care physician in 2-3 days. Dictation on this chart was performed using voice recognition software and may result in unintended grammatical, spelling, syntax or errors. - Vital Signs Vital signs: Temp Pulse Resp BP Pulse Ox 98.9 F 84 16 136/62 H 99 07/23/18 16:46 07/23/18 16:46 07/23/18 16:46 07/23/18 16:46 07/23/18 16:46 - Laboratory Result Diagrams: 07/23/18 15:07 Laboratory results interpreted by me: 07/23/18 07/23/18 12:50 15:07 Beta HCG, Quant 153.08 H Urine Blood SMALL H Discharge - Discharge Clinical Impression: Early stage of Condition: Good Disposition: HOME, SELF-CARE Instructions: ([facility]) Prescriptions: 95/Iron Fum/Folic/Dha [ + Dha Combo Pack] 1 each PO ASDIR #30 combo..pkg Forms: Elevated Blood Pressure, Follow-Up Laboratory Testing, Smoking Cessation Education, Return to Work
[2018-07-23 15:08] LABS: APPEARANCE,URINE CLEAR; BILIRUBIN,URINE NEGATIVE (NEGATIVE); COLOR,URINE STRAW; GLUCOSE, URINE NEGATIVE (NEGATIVE); KETONES,URINE NEGATIVE (NEGATIVE); LEUKOCYTE ESTERASE,URINE NEGATIVE (NEGATIVE); NITRITE,URINE NEGATIVE (NEGATIVE); PROTEIN,URINE NEGATIVE (NEGATIVE); UROBILINOGEN,URINE NEGATIVE mg/dL (<2.0)
[2018-07-23 15:22] LABS: ABSOLUTE BASOPHILS # (AUTO) 0.1 10^3/uL (0.0-0.2); ABSOLUTE EOSINOPHILS # (AUTO) 0.1 10^3/uL (0.0-0.6); ABSOLUTE LYMPHOCYTES (AUTO) 3.9 10^3/uL (0.5-4.7); ABSOLUTE MONOCYTES (AUTO) 0.6 10^3/uL (0.1-1.4); BASOPHILS % (AUTO) 0.9 % (0-2); EOSINOPHILS % (AUTO) 1.6 % (0-6); HEMATOCRIT 37.4 % (36.0-47.0); HEMOGLOBIN 12.7 g/dL (12.0-15.5); LYMPHOCYTES % (AUTO) 44.9 % (13-45); MEAN CORPUSCULAR HGB CONC 33.9 g/dL (32.0-36.0); MEAN CORPUSCULAR VOLUME 92 fl (80-97); MONOCYTES % (AUTO) 6.4 % (3-13); PLATELET COUNT 404 10^3/uL (150-450); RED BLOOD COUNT 4.09 10^6/uL (3.72-5.28); RED CELL DISTRIBUTION WIDTH 12.8 % (11.5-14.0); SEGMENTED NEUTROPHILS % (AUTO) 46.2 % (42-78); TOTAL CELLS COUNTED % (AUTO) 100 %; WHITE BLOOD COUNT 8.7 10^3/uL (4.0-10.5)
[2018-07-23 16:51] VITALS: BP 136/62
== END 2018-07-23 16:51 | disposition home or self-care (01) ==
LOC: ER 12:34
DX: O26.891 Other specified pregnancy related conditions, first trimester (principal); R10.30 Lower abdominal pain, unspecified; M54.5 Low back pain; O99.331 Smoking (tobacco) complicating pregnancy, first trimester; Z3A.11 11 weeks gestation of pregnancy
CPT/HCPCS: 36415; 81001; 84702; 85025; 99284; 99406

== ENCOUNTER 2018-07-27 22:43 | Emergency (ER) | payer MEDICAID ==
[2018-07-27 23:27] LABS: ABSOLUTE BASOPHILS # (AUTO) 0.1 10^3/uL (0.0-0.2); ABSOLUTE EOSINOPHILS # (AUTO) 0.1 10^3/uL (0.0-0.6); ABSOLUTE LYMPHOCYTES (AUTO) 5.8 10^3/uL (0.5-4.7); ABSOLUTE MONOCYTES (AUTO) 0.7 10^3/uL (0.1-1.4); ABSOLUTE NEUT (AUTO) 4.4 10^3/uL (1.7-8.2); BASOPHILS % (AUTO) 0.8 % (0-2); HEMOGLOBIN 12.2 g/dL (12.0-15.5); LYMPHOCYTES % (AUTO) 52.4 % (13-45); MEAN CORPUSCULAR HEMOGLOBIN 31.3 pg (27.0-33.4); MEAN CORPUSCULAR VOLUME 92 fl (80-97); MONOCYTES % (AUTO) 6.3 % (3-13); PLATELET COUNT 395 10^3/uL (150-450); RED BLOOD COUNT 3.91 10^6/uL (3.72-5.28); RED CELL DISTRIBUTION WIDTH 12.7 % (11.5-14.0); SEGMENTED NEUTROPHILS % (AUTO) 39.5 % (42-78); TOTAL CELLS COUNTED % (AUTO) 100 %; WHITE BLOOD COUNT 11.1 10^3/uL (4.0-10.5)
[2018-07-27 23:47] LABS: ALANINE AMINOTRANSFERASE 11 U/L (9-52); ALBUMIN 4.2 g/dL (3.5-5.0); ALKALINE PHOSPHATASE 66 U/L (38-126); ANION GAP 9 (5-19); ASPARTATE AMINO TRANSFERASE 21 U/L (14-36); BILIRUBIN,DIRECT 0.2 mg/dL (0.0-0.4); BILIRUBIN,TOTAL 0.2 mg/dL (0.2-1.3); BLOOD UREA NITROGEN 11 mg/dL (7-20); CALCIUM 9.5 mg/dL (8.4-10.2); CARBON DIOXIDE 24 mmol/L (22-30); CHLORIDE 104 mmol/L (98-107); GLUCOSE 96 mg/dL (75-110); LIPASE 74.1 U/L (23-300); POTASSIUM 4.4 mmol/L (3.6-5.0); SODIUM 136.5 mmol/L (137-145); TOTAL PROTEIN 7.1 g/dL (6.3-8.2)
--- NOTE | 2018-07-28 00:56 | RADIOLOGY REPORT (SQ) ---
US PELVIS EXAM DATE: 07/27/2018 23:35 HISTORY: . Pelvic pain. COMPARISON: None. TECHNIQUE: Grayscale, color Doppler, and spectral Doppler ultrasound images of the pelvis were obtained. FINDINGS: The uterus is anteverted and measures 9.9 x 5.9 x 4.5 cm. The endometrium appears mildly thickened but without a gestational sac. The cervix measures 3.4 cm in length and is closed. No intrauterine is identified. The right ovary measures 2.4 x 1.8 x 1.5 cm and contains normal color Doppler blood flow. The left ovary was not well visualized. There is a tubular primarily hypoechoic structure in the left adnexa containing low-level echoes which may represent a dilated fallopian tube. No free fluid is seen in the pelvis. IMPRESSION: 1. No intrauterine is identified. 2. Fluid-filled tubular structure in the left adnexa may represent a left-sided hydrosalpinx. 3. Left ovary was not well visualized.
--- NOTE | 2018-07-28 01:37 | ER Document Report ---
ED General - General Chief Complaint: Upper Abdominal Pain Stated Complaint: ABDIMINAL PAIN Time Seen by Provider: 07/27/18 23:20 Notes: Patient is a 22-year-old female at unknown gestational age who presents with diffuse abdominal cramping mostly located to the upper abdomen that started earlier today and has now mostly resolved. She denies any associated vaginal bleeding or vaginal discharge. No dysuria. Was seen on the second of this month for the same symptoms. She denies anything seems to improve or worsen her symptoms. No history of similar symptoms in the past. She has not yet established care for this . Denies any trauma to the abdomen. TRAVEL OUTSIDE OF THE [place] IN LAST 30 DAYS: No - Related Data Allergies/Adverse Reactions: Penicillins Allergy (Verified 07/23/18 12:35) Past Medical History - General Information source: Patient - Social History Smoking Status: Never Smoker Frequency of alcohol use: None Drug Abuse: None Lives with: Spouse/Significant other Family History: Reviewed & Not Pertinent Renal/ Medical History: Denies: Hx Peritoneal Dialysis Past Surgical History: Reports: Hx Section - x1 - Immunizations Hx Diphtheria, Pertussis, Tetanus Vaccination: Yes Review of Systems - Review of Systems Notes: Constitutional: Negative for fever. HENT: Negative for sore throat. Eyes: Negative for visual changes. Cardiovascular: Negative for chest pain. Respiratory: Negative for shortness of breath. Gastrointestinal: Positive for generalized abdominal pain now resolved Genitourinary: Negative for dysuria. Musculoskeletal: Negative for back pain. Skin: Negative for rash. Neurological: Negative for headaches, weakness or numbness. 10 point ROS negative except as marked above and in HPI. Physical Exam - Vital signs Vitals: Temp Pulse Resp BP Pulse Ox 99.9 F 74 16 130/69 H 100 07/27/18 23:10 07/27/18 23:10 07/27/18 23:10 07/27/18 23:10 07/27/18 23:10 Interpretation: Normal Notes: PHYSICAL EXAMINATION: GENERAL: Well-appearing, well-nourished and in no acute distress. HEAD: Atraumatic, normocephalic. EYES: Pupils equal round and reactive to light, extraocular movements intact, sclera anicteric, conjunctiva are normal. ENT: nares patent, oropharynx clear without exudates. Moist mucous membranes. NECK: Normal range of motion, supple without lymphadenopathy LUNGS: Breath sounds clear to auscultation bilaterally and equal. No wheezes rales or rhonchi. HEART: Regular rate and rhythm without murmurs ABDOMEN: Soft, nontender, normoactive bowel sounds. No guarding, no rebound. No masses appreciated. EXTREMITIES: Normal range of motion, no pitting or edema. No cyanosis. NEUROLOGICAL: No focal neurological deficits. Moves all extremities spontaneously and on command. PSYCH: Normal mood, normal affect. SKIN: Warm, Dry, normal turgor, no rashes or lesions noted. Course - Re-evaluation Re-evalutation: 07/28/18 01:32 Patient presents with a mild amount generalized abdominal pain now resolved in the setting of early first trimester . Transvaginal ultrasound is unable to visualize an intrauterine at this time. Does note a fluid- filled structure in the left adnexa quantified is likely being a hydrosalpinx. Quantitative hCG has increased from 153-1680 since the second of this month. No vaginal bleeding. Patient's abdominal exam is otherwise benign without any focal tenderness. I do not suspect an acute appendicitis, pyelonephritis, cystitis, or bowel obstruction. I did discuss this case with Dr. Sj Peterson who is on-call for [employer] given the noted structure in the left adnexa. He states that it is too early to call this an ectopic and that the patient will need to follow-up for serial hCGs. At this time I have informed the patient that she needs to return to the emergency department or the women's clinic in 48 hours for recheck of her quantitative beta hCG to assess whether or not this is a normal or a possible ectopic . I have clearly informed the patient that at this time this is a of unknown location and we do not know whether or not she has an ectopic . At this time will discharge with return precautions and follow-up recommendations. Verbal discharge instructions given a the bedside and opportunity for questions given. Medication warnings reviewed. Patient is in agreement with this plan and has verbalized understanding of return precautions and the need for primary care follow-up in the next 24-72 hours. - Vital Signs Vital signs: Temp Pulse Resp BP Pulse Ox 99.9 F 74 16 130/69 H 100 07/27/18 23:10 07/27/18 23:10 07/27/18 23:10 07/27/18 23:10 07/27/18 23:10 - Laboratory Result Diagrams: 07/27/18 23:16 07/27/18 23:16 Laboratory results interpreted by me: 07/27/18 07/27/18 07/27/18 23:16 23:16 23:16 WBC 11.1 H Seg Neutrophils % 39.5 L Lymphocytes % 52.4 H Absolute Lymphocytes 5.8 H Sodium 136.5 L Serum HCG, Qual POSITIVE H Beta HCG, Quant 07/27/18 23:16 WBC Seg Neutrophils % Lymphocytes % Absolute Lymphocytes Sodium Serum HCG, Qual Beta HCG, Quant 1680.50 H - Diagnostic Test Radiology reviewed: Reports reviewed Discharge - Discharge Clinical Impression: of unknown anatomic location, Abdominal pain affecting Condition: Good Disposition: HOME, SELF-CARE Additional Instructions: You need to return to the ED or the women's health clinic in 48 hours for a rech kirit of your hormone level. The ultrasound is unable to see anything at this time possibly because you are too early in . We cannot definitively exclude an ectopic at this time. Please return if you develop severe abdominal pain, bleeding that goes through more than 2 pads for more than 2 hours, pass out, or have any other symptoms that are concerning to you. Please follow-up closely with your OBGYN regarding todays visit. Referrals: CLAIRE PETERSON MD [ACTIVE STAFF] - 07/30/18
[2018-07-28 01:58] VITALS: BP 108/60
== END 2018-07-28 02:00 | disposition home or self-care (01) ==
LOC: ER 22:43
DX: O26.891 Other specified pregnancy related conditions, first trimester (principal); R10.84 Generalized abdominal pain; Z3A.00 Weeks of gestation of pregnancy not specified; Z88.0 Allergy status to penicillin
CPT/HCPCS: 36415; 76817; 80053; 83690; 84702; 84703; 85025; 99284

== ENCOUNTER → 2018-07-29 | Outpatient (CLI) | payer MEDICAID | LOC: OD 12:18 | PROVIDERS: ATTEND Obstetrics & Gynecology | DX: O20.0 Threatened abortion (principal) | CPT/HCPCS: 36415; 84702 ==

== ENCOUNTER 2018-08-23 20:06 | Emergency (ER) | payer MEDICAID ==
[2018-08-23] MEDS ORDERED: ONDANSETRON HCL INJ/PF 4 MG/2 ML SDV IV ONE (21:51)
[2018-08-23] MEDS ORDERED: NORMAL SALINE 1000 ML 1,000 ML IV ONE ×2 (21:51→22:48)
[2018-08-23 22:24] LABS: ABSOLUTE LYMPHOCYTES (AUTO) 2.7 10^3/uL (0.5-4.7); ABSOLUTE MONOCYTES (AUTO) 0.4 10^3/uL (0.1-1.4); ABSOLUTE NEUT (AUTO) 8.6 10^3/uL (1.7-8.2); BASOPHILS % (AUTO) 0.2 % (0-2); EOSINOPHILS % (AUTO) 0.1 % (0-6); HEMATOCRIT 38.5 % (36.0-47.0); HEMOGLOBIN 13.7 g/dL (12.0-15.5); LYMPHOCYTES % (AUTO) 23.2 % (13-45); MEAN CORPUSCULAR HEMOGLOBIN 32.3 pg (27.0-33.4); MEAN CORPUSCULAR HGB CONC 35.7 g/dL (32.0-36.0); MEAN CORPUSCULAR VOLUME 91 fl (80-97); PLATELET COUNT 477 10^3/uL (150-450); RED BLOOD COUNT 4.25 10^6/uL (3.72-5.28); RED CELL DISTRIBUTION WIDTH 12.6 % (11.5-14.0); SEGMENTED NEUTROPHILS % (AUTO) 73.5 % (42-78); TOTAL CELLS COUNTED % (AUTO) 100 %; WHITE BLOOD COUNT 11.7 10^3/uL (4.0-10.5)
--- NOTE | 2018-08-23 22:27 | ER Document Report ---
ED General - General Chief Complaint: Vomiting Stated Complaint: VOMITING,ABDOMINAL PAIN Time Seen by Provider: 08/23/18 22:21 Primary Care Provider: CLAIRE INGRAM MD [ACTIVE STAFF] - Follow up in 1 week Notes: Patient is a pleasant 22-year-old female who is 8 weeks who presents with complaints of vomiting. She is been vomiting consistently for the last 72 hours. No diarrhea. No abdominal pain. No fevers. No sore throat. No abnormal vaginal discharge or bleeding. She has had a ultrasound this preg mahendra. They saw a intrauterine per her report. No other complaints at this time. TRAVEL OUTSIDE OF THE [place] IN LAST 30 DAYS: No COUNTRY TRAVELED TO/FROM: [facility] - Related Data Allergies/Adverse Reactions: Penicillins Allergy (Verified 07/23/18 12:35) Past Medical History - Social History Smoking Status: Never Smoker Frequency of alcohol use: None Drug Abuse: None Family History: Reviewed & Not Pertinent Renal/ Medical History: Denies: Hx Peritoneal Dialysis Past Surgical History: Reports: Hx Section - x1 - Immunizations Hx Diphtheria, Pertussis, Tetanus Vaccination: Yes Review of Systems - Review of Systems Notes: My Normal Review Basic REVIEW OF SYSTEMS: CONSTITUTIONAL : Denies fever, chills, or sweats. Denies recent illness. EENT: Denies eye, ear, throat, or mouth pain or symptoms. Denies nasal or sinus congestion. RESPIRATORY: Denies cough, cold, or chest congestion. Denies shortness of breath, difficulty breathing, or wheezing. GASTROINTESTINAL: Denies abdominal pain. vomiting GENITOURINARY: Denies difficulty urinating, painful urination, burning, f requency, or blood in urine. FEMALE GENITOURINARY: Denies vaginal bleeding, abnormal or irregular periods. LMP: Currently MUSCULOSKELETAL: Denies neck or back pain or joint pain or swelling. SKIN: Denies rash or skin lesions. NEUROLOGICAL: Denies altered mental status or loss of consciousness. Denies headache. Denies weakness or paralysis or loss of use of either side. Denies problems with gait or speech. Denies sensory or motor loss. ALL OTHER SYSTEMS REVIEWED AND NEGATIVE. Physical Exam - Vital signs Vitals: Temp Pulse Resp BP Pulse Ox 99.6 F 103 H 18 128/80 H 99 08/23/18 20:14 08/23/18 20:14 08/23/18 20:14 08/23/18 20:14 08/23/18 20:14 - Notes Notes: General Appearance: Well nourished, alert, cooperative, no acute distress, no obvious discomfort. Vitals: reviewed, See vital signs table. Eyes: PERRL, EOMI, Conjuctiva clear Mouth: No decreasd moisture Throat: No tonsillar inflammation, No airway obstruction, No lymphadenopathy Lungs: No wheezing, No rales, No rhonci, No accessory muscle use, good air exchange bilaterally. Heart: Normal rate, Regular rythm, No murmur, no rub Abdomen: Normal BS, soft, No rigidity, No abdominal tenderness, No guarding, no rebound, no abdominal masses, no organomegaly Extremities: strength 5/5 in all extremities, good pulses in all extremities, no swelling or tenderness in the extremities, no edema. Skin: warm, dry, appropriate color, no rash Neuro: speech clear, oriented x 3, normal affect, responds appropriately to questions. Course - Re-evaluation Re-evalutation: 08/24/18 00:12 Patient's nausea and vomiting is much improved. She has no social abdominal pain. This could be hyperemesis gravidarum. May also be viral. I do not think she needs any imaging of her abdomen as her abdomen is completely nontender she has no abdominal pain. She has no abnormal vaginal bleeding or discharge. She is artery had a ultrasound showing a normal IUP. Feel she safe to be discharged home. I discussed with her the different options of nausea medicine including Reglan and Zofran. I informed her of the one study that does show that there is a slight potential of cardiogenic defects in children if he is in the first trimester. Patient says that she is understanding of this but says that the Zofran works for well for her and she prefers to go for the Zofran. I will prescribe Zofran. I encouraged her to follow-up closely with her OB doctor. I encouraged her return to ER if she has fevers, abdominal pain, intractable vomiting, or if she feels unwell. Dictation of this chart was performed using voice recognition software; therefore, there may be some unintended grammatical errors. - Vital Signs Vital signs: Temp Pulse Resp BP Pulse Ox 99.6 F 103 H 18 128/80 H 99 08/23/18 20:14 08/23/18 20:14 08/23/18 20:14 08/23/18 20:14 08/23/18 20:14 - Laboratory Result Diagrams: 08/23/18 22:06 08/23/18 22:06 Laboratory results interpreted by me: 08/23/18 08/23/18 08/23/18 22:06 22:06 22:06 WBC 11.7 H Plt Count 477 H Absolute Neutrophils 8.6 H Calcium 10.4 H Urine Protein 100 H Urine Ketones 80 H Urine Bilirubin SMALL H Urine Urobilinogen 4.0 H Discharge - Discharge Clinical Impression: Vomiting Qualifiers: Vomiting type: unspecified Vomiting Intractability: non-intractable Nausea presence: with nausea Qualified Code(s): R11.2 - Nausea with vomiting, unspecif ied Qualifiers: Weeks of gestation: 8 weeks Qualified Code(s): Z3A.08 - 8 weeks gestation of Condition: Good Disposition: HOME, SELF-CARE Additional Instructions: I have prescribed you the medicine for nausea called Zofran. This is the medication I discussed with you. Please take it as prescribed. Please return to the ER immediately if you have intractable vomiting, abdominal pain, vaginal bleeding, abnormal discharge, fevers, or if you feel that you are worsening in any way. Please follow-up with your superintendent police within 1 week for reevaluation. Prescriptions: Ondansetron [Zofran Odt 4 mg Tablet] 1 tab PO Q4H PRN #20 tab.rapdis PRN Reason: For Nausea/Vomiting Referrals: CLAIRE INGRAM MD [ACTIVE STAFF] - Follow up in 1 week
[2018-08-23 22:32] LABS: APPEARANCE,URINE CLOUDY; BILIRUBIN,URINE SMALL (NEGATIVE); COLOR,URINE DARK YELLOW; GLUCOSE, URINE NEGATIVE (NEGATIVE); KETONES,URINE 80 mg/dL (NEGATIVE); LEUKOCYTE ESTERASE,URINE NEGATIVE (NEGATIVE); NITRITE,URINE NEGATIVE (NEGATIVE); PROTEIN,URINE 100 mg/dL (NEGATIVE); URINE SPECIFIC GRAVITY 1.032
[2018-08-23 22:46] LABS: ALANINE AMINOTRANSFERASE 27 U/L (9-52); ALBUMIN 4.9 g/dL (3.5-5.0); ALKALINE PHOSPHATASE 79 U/L (38-126); ANION GAP 12 (5-19); ASPARTATE AMINO TRANSFERASE 24 U/L (14-36); BILIRUBIN,DIRECT 0.1 mg/dL (0.0-0.4); BILIRUBIN,TOTAL 0.6 mg/dL (0.2-1.3); BLOOD UREA NITROGEN 7 mg/dL (7-20); CALCIUM 10.4 mg/dL (8.4-10.2); CARBON DIOXIDE 27 mmol/L (22-30); CHLORIDE 101 mmol/L (98-107); GLUCOSE 99 mg/dL (75-110); POTASSIUM 4.3 mmol/L (3.6-5.0); TOTAL PROTEIN 7.9 g/dL (6.3-8.2)
[2018-08-24] MEDS ORDERED: ONDANSETRON ODT 4 MG TAB (6 TAB/ER DISP) PO PRN (00:12)
[2018-08-24 00:55] VITALS: BP 112/67
== END 2018-08-24 00:55 | disposition home or self-care (01) ==
LOC: ER 20:06
DX: O21.9 Vomiting of pregnancy, unspecified (principal); Z3A.08 8 weeks gestation of pregnancy; Z88.0 Allergy status to penicillin
CPT/HCPCS: 99284; 96361; 96374; 36415; 85025; 80053; 81001; J2405; J7030

== ENCOUNTER 2019-03-24 12:07 | Outpatient (CLI) | payer MEDICAID ==
[2019-03-24] MEDS ORDERED: HYDROXYZINE PAMOATE 50 MG CAPSULE PO ONE (12:36)
[2019-03-24] MEDS ORDERED: HYDROXYZINE PAMOATE 50 MG CAPSULE ONE (12:37)
[2019-03-24 12:57] LABS: APPEARANCE,URINE CLEAR; BILIRUBIN,URINE NEGATIVE (NEGATIVE); COLOR,URINE YELLOW; GLUCOSE, URINE NEGATIVE (NEGATIVE); KETONES,URINE 80 mg/dL (NEGATIVE); LEUKOCYTE ESTERASE,URINE NEGATIVE (NEGATIVE); NITRITE,URINE NEGATIVE (NEGATIVE); PROTEIN,URINE NEGATIVE (NEGATIVE); URINE SPECIFIC GRAVITY 1.006; UROBILINOGEN,URINE NEGATIVE mg/dL (<2.0)
[2019-03-24 13:14] LABS: URINE AMPHETAMINES SCREEN NEGATIVE; URINE BARBITURATES SCREEN NEGATIVE; URINE BENZODIAZEPINES SCREEN NEGATIVE; URINE COCAINE SCREEN NEGATIVE; URINE MARIJUANA (THC) SCREEN NEGATIVE; URINE METHADONE SCREEN NEGATIVE; URINE PHENCYCLIDINE SCREEN NEGATIVE
[2019-03-24] MEDS ORDERED: TERBUTALINE SULFATE INJ/PF 1 MG/1 ML SDV SUBCUT ONE (15:00)
--- NOTE | 2019-03-24 15:21 | Non Stress Test Report ---
Non Stress Test Datetime Report Generated by CPN: 03/24/2019 15:20 DEMOGRAPHIC Test Number: 1 EGA NST: 38.6 INDICATION Indication for Study: Other Indication for Study (NST) Other: order from provider MONITORING Monitor Explained: Monitor Explained; Test Explained; Patient Verbalized Understanding Time on Monitor: 03/24/2019 12:30 Time off Monitor: 03/24/2019 15:03 NST Duration: 153 NST INTERVENTIONS NST Interventions: PO Hydration; Meal Given Physician Notified NST: N. De León CNM BABY A: [id number] BABY A Movement : Present Contraction Frequency : irregular with vistaril FHR Baseline : 150 Accelerations : 15X15 Decelerations : Variable Variability : Moderate 6-25bpm NST Review: Meets Criteria for Reactive NST NST Review and Verified By : Kenzie Kruse RN NST Results: Reactive NST REPORT Report Trigger: Send Report
== END 2019-03-24 15:09 | disposition home or self-care (01) ==
LOC: LC 12:07
PROVIDERS: ATTEND Obstetrics & Gynecology
PROC: 4A1HXCZ Monitoring of Products of Conception, Cardiac Rate, External Approach (ICD-10-PCS; principal; 2019-03-24)
DX: O47.1 False labor at or after 37 completed weeks of gestation (principal); O36.8330 Maternal care for abnormalities of the fetal heart rate or rhythm, third trimester, not applicable or unspecified; Z3A.38 38 weeks gestation of pregnancy
CPT/HCPCS: 59025; 81005; 80307; J3490

== ENCOUNTER 2019-03-26 04:00 | Inpatient (IN) | payer MEDICAID ==
[2019-03-25 11:34] LABS: ABSOLUTE BASOPHILS # (AUTO) 0.1 10^3/uL (0.0-0.2); ABSOLUTE LYMPHOCYTES (AUTO) 2.3 10^3/uL (0.5-4.7); ABSOLUTE NEUT (AUTO) 9.6 10^3/uL (1.7-8.2); BASOPHILS % (AUTO) 0.6 % (0-2); EOSINOPHILS % (AUTO) 0.2 % (0-6); HEMATOCRIT 36.6 % (36.0-47.0); HEMOGLOBIN 12.3 g/dL (12.0-15.5); LYMPHOCYTES % (AUTO) 17.6 % (13-45); MEAN CORPUSCULAR HEMOGLOBIN 30.3 pg (27.0-33.4); MEAN CORPUSCULAR HGB CONC 33.6 g/dL (32.0-36.0); MEAN CORPUSCULAR VOLUME 90 fl (80-97); MONOCYTES % (AUTO) 7.9 % (3-13); PLATELET COUNT 253 10^3/uL (150-450); RED BLOOD COUNT 4.05 10^6/uL (3.72-5.28); SEGMENTED NEUTROPHILS % (AUTO) 73.7 % (42-78); TOTAL CELLS COUNTED % (AUTO) 100 %
[2019-03-25 11:43] LABS: APPEARANCE,URINE SLIGHTLY-CLOUDY; BILIRUBIN,URINE NEGATIVE (NEGATIVE); COLOR,URINE YELLOW; GLUCOSE, URINE NEGATIVE (NEGATIVE); KETONES,URINE 80 mg/dL (NEGATIVE); LEUKOCYTE ESTERASE,URINE NEGATIVE (NEGATIVE); NITRITE,URINE NEGATIVE (NEGATIVE); PROTEIN,URINE NEGATIVE (NEGATIVE); URINE SPECIFIC GRAVITY 1.005; UROBILINOGEN,URINE NEGATIVE mg/dL (<2.0)
[2019-03-25 12:10] LABS: ALBUMIN 3.6 g/dL (3.5-5.0); ALKALINE PHOSPHATASE 183 U/L (38-126); ANION GAP 10 (5-19); ASPARTATE AMINO TRANSFERASE 21 U/L (14-36); BILIRUBIN,DIRECT 0.4 mg/dL (0.0-0.4); BILIRUBIN,TOTAL 0.8 mg/dL (0.2-1.3); BLOOD UREA NITROGEN 3 mg/dL (7-20); CALCIUM 9.6 mg/dL (8.4-10.2); CARBON DIOXIDE 22 mmol/L (22-30); CHLORIDE 103 mmol/L (98-107); GLUCOSE 70 mg/dL (75-110); POTASSIUM 3.8 mmol/L (3.6-5.0); TOTAL PROTEIN 6.5 g/dL (6.3-8.2); URIC ACID 5.7 mg/dL (2.5-6.2)
[2019-03-25 12:11] LABS: UR PRO/CREAT RATIO RESULT 0.4 mg/mg (0.0-0.2); URINE PROTEIN 23.4 mg/dL (<12)
[2019-03-25 12:18] LABS: URINE AMPHETAMINES SCREEN NEGATIVE; URINE BARBITURATES SCREEN NEGATIVE; URINE BENZODIAZEPINES SCREEN NEGATIVE; URINE COCAINE SCREEN NEGATIVE; URINE MARIJUANA (THC) SCREEN NEGATIVE; URINE METHADONE SCREEN NEGATIVE; URINE PHENCYCLIDINE SCREEN NEGATIVE
[2019-03-25 13:00] LABS: CHLAM PCR NOT DETECTED (NOT DETECT)
[2019-03-26] MEDS ORDERED: RINGERS SOLUTION,LACTATED 1,000 ML IV PRN ×2 (05:43→12:25)
[2019-03-26] MEDS ORDERED: CLINDAMYCIN 900 MG/D5W RTU 900 MG/50 ML RTUPB IV ONE (07:24)
[2019-03-26] MEDS ORDERED: FENTANYL CITRATE INJ/PF 100 MCG/2 ML AMPUL ONE (07:38)
[2019-03-26] MEDS ORDERED: KETOROLAC TROMETHAMINE INJ/PF 30 MG/1 ML SDV ONE (07:38)
[2019-03-26] MEDS ORDERED: OXYTOCIN 10 UNIT/ML VIAL ONE (07:38)
[2019-03-26] MEDS ORDERED: ONDANSETRON HCL INJ/PF 4 MG/2 ML SDV ONE (07:39)
[2019-03-26] MEDS ORDERED: ACETAMINOPHEN 0 MG/0 ML RTUPB IV ONE (07:39)
[2019-03-26] MEDS ORDERED: EPHEDRINE SULFATE INJ 50 MG/1 ML AMPULE ONE (07:39)
[2019-03-26] MEDS ORDERED: MIDAZOLAM 2 MG/2 ML INJ ONE (07:39)
[2019-03-26] MEDS ORDERED: OXYTOCIN/NORMAL SALINE 20 UNIT/1,000 ML RTUINJ ONE (07:39)
[2019-03-26] MEDS ORDERED: ACETAMINOPHEN 325 MG TABLET PO ONE (07:43)
[2019-03-26] MEDS ORDERED: ACETAMINOPHEN 325 MG TABLET ONE (07:44)
[2019-03-26] MEDS ORDERED: PHENYLEPHRINE HCL INJ/PF 10 MG/1 ML SDV ONE (07:51)
[2019-03-26] MEDS ORDERED: BUPIVACAINE HCL/DEX-WATER/PF 15 MG/2 ML AMPULE ONE (08:44)
[2019-03-26] MEDS ORDERED: OXYCODONE-ACETAMINOPHEN 5-325 MG TABLET PO PRN (10:48)
[2019-03-26] MEDS ORDERED: DIPH/PERTUSS(ACELL)/TETANUS VAC/PF 0.5 ML SYR (>=10YO) IM PRN (10:48)
[2019-03-26] MEDS ORDERED: MEASLES,MUMPS&RUBELLA VACC/PF 0.5 ML VIAL SUBCUT PRN (10:48)
[2019-03-26] MEDS ORDERED: ACETAMINOPHEN 325 MG TABLET PO PRN (10:48)
[2019-03-26] MEDS ORDERED: PROMETHAZINE HCL INJ 25 MG/1 ML VIAL IV PRN (10:48)
[2019-03-26] MEDS ORDERED: OXYTOCIN/NORMAL SALINE 20 UNIT/1,000 ML RTUINJ IV PRN (10:48)
--- NOTE | 2019-03-26 11:27 | Operative Report ---
Operative Report DATE OF SURGERY: 03/26/19 PREOPERATIVE DIAGNOSIS: H/o section for NRFHTs, 39+1ega, Declines ISIDRO C. POSTOPERATIVE DIAGNOSIS: SOFIYA - delivered OPERATION: Repeat section with scar revision SURGEON: GRETA ACOSTA ANESTHESIA: Spinal TISSUE REMOVED OR ALTERED: placenta and cord sent to pathology COMPLICATIONS: None ESTIMATED BLOOD LOSS: 1319 INTRAOPERATIVE FINDINGS: normal bilateral tubes/ovaries. 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 VMI delivered at 0924, Apgars 9/9. Weight 3115g. IVF 1500ml, UOP 200ml PROCEDURE: Anesthesia provider: [Kody MARTIN, Ricardo Dixon EXTRACTIONS TECHNOLOGIST] Estimated blood loss: [1319ml] Urine output: [200ml] IV fluids: [1500ml] Indications: [23yo at 39+1ega presents for repeat section. She has a history of Primary section due to NRFHTs. She declines TOLAC. THe risks, benefits, alternatives were reviewed with patient and she desires to proceed with planned Repeat . She declines tubal ligation. ] Procedure: The patient was taken to the operating room where spinal anesthesia was obtained and found to be adequate. She was then prepped and draped in the normal sterile fashion and placed in the dorsal supine position with a leftward tilt. A Pfannenstiel skin incision was then made and carried through to the underlying layers of the fascia with the scalpel. The fascia was incised in the midline and the incision extended laterally with the Vann scissors. The superior aspect of the fascial incision was then grasped with Franco clamps elevated and the underlying rectus muscles dissected off [bluntly]. Attention was then turned to the inferior aspect of the fascial incision which in a similar fashion was grasped, tented up with Franco clamps, and the rectus muscles dissected off sharply and rectus muscles and bladder were sharply dissected off the uterus to obtain access to the lower uterine segment. The bladder blade was then reinserted and the lower uterine segment incised in a transverse fashion with the scalpel. The uterine incision was then extended sharply. The bladder blade was removed and the infant's head was delivered from cephalic presentation atraumatically. The nose and mouth were suctioned and the cord doubly clamped and cut. And the infant was handed off to waiting pediatricians. The placenta was then delivered spontaneously and the uterus exteriorized and cleared of all clots and debris. The uterine incision was then repaired with 1- 0 Vicryl in a running locked fashion. A second layer of the same suture was used to obtain hemostasis via imbrication of the initial layer. The bladder flap was then repaired with 3-0 chromic in a running fashion. The uterus was returned to the patient's abdomen and Surgicel and Interceed was placed overlying the uterine incision to prevent adhesions and help with bleeding. The gutters were cleared of all clots and debris. All operative sites were noted to be hemostatic. The fascia was reapproximated with 0 Vicryl in a running fashion from each lateral edge to the midline. The skin was closed with 3-0 Monocryl in a running subcuticular fashion with overlying Dermabond for additional dressing as well as wound closure. The patient tolerated the procedure well. Sponge lap needle and instrument counts are correct times 2. Clindamycin 900mg were given prior to skin incision. The patient was taken to the recovery area awake and in stable condition.
[2019-03-26] MEDS: HYDROMORPHONE HCL INJ/PF 2 MG/ML AMPULE IV PRN ×2 (11:55→15:02)
[2019-03-26] MEDS ORDERED: RINGERS SOLUTION,LACTATED 1,000 ML IV ONE (12:25)
[2019-03-26] MEDS: OXYCODONE-ACETAMINOPHEN 5-325 MG TABLET PO PRN ×2 (13:36→20:16)
[2019-03-26] MEDS: KETOROLAC TROMETHAMINE INJ/PF 30 MG/1 ML SDV IV SCH ×2 (13:36→22:10)
[2019-03-26] MEDS ORDERED: CLINDAMYCIN 900 MG/D5W RTU 900 MG/50 ML RTUPB IV SCH (14:00)
[2019-03-26] MEDS: DOCUSATE SODIUM 100 MG CAPSULE PO SCH (17:11)
[2019-03-27] MEDS: HYDROMORPHONE HCL INJ/PF 2 MG/ML AMPULE IV PRN ×2 (04:00→20:55)
[2019-03-27] MEDS: KETOROLAC TROMETHAMINE INJ/PF 30 MG/1 ML SDV IV SCH (05:44)
[2019-03-27 06:42] LABS: HEMATOCRIT 25.1 % (36.0-47.0); MEAN CORPUSCULAR HEMOGLOBIN 30.4 pg (27.0-33.4); MEAN CORPUSCULAR HGB CONC 33.8 g/dL (32.0-36.0); MEAN CORPUSCULAR VOLUME 90 fl (80-97); PLATELET COUNT 250 10^3/uL (150-450); RED BLOOD COUNT 2.79 10^6/uL (3.72-5.28); RED CELL DISTRIBUTION WIDTH 13.6 % (11.5-14.0)
[2019-03-27 06:44] LABS: HEMOGLOBIN 8.5 g/dL (12.0-15.5)
--- NOTE | 2019-03-27 08:12 | PDOC PROGRESS REPORT ---
Subjective-OB Progress Note for:: 03/27/19 Subjective: pt states she feels fine Physical Exam (OB) Vital Signs: Temp Pulse Resp BP Pulse Ox 98.2 F 99 14 134/80 H 94 03/27/19 04:09 03/27/19 04:09 03/27/19 04:09 03/27/19 04:09 03/27/19 04:09 Intake & Output 03/26/19 03/27/19 03/28/19 06:59 06:59 06:59 Intake Total 1950 Output Total 350 Balance 1600 Weight 87.4 kg - General General Appearance: Appears well, Alert - PIH/Pre-Eclampsia Headache: Absent Epigastric Pain: No Visual Changes: No - Dressing Removed: No Incision: Well Approximated Closure Type: Sutures - Lochia Lochia Amount: Scant < 10 ml Lochia Color: Rubra/Red - Abdomen Description: Tender, Soft Hernia Present: No Bowel Sounds: Normoactive Flatus Presence: Present Stool: No Fundal Description: Firm, Midline Fundal Height: u/u - u/2 - Respiratory Breath sounds: Clear - Extremities Calf: Nontender Objective-Diagnostic Laboratory: 03/27/19 06:19 03/25/19 11:02 03/27/19 06:19 WBC 12.0 H RBC 2.79 L Hgb 8.5 L D Hct 25.1 L MCV 90 MCH 30.4 MCHC 33.8 RDW 13.6 Plt Count 250 Assessment and Plan(PN) - Assessment and Plan (1) S/P repeat low transverse Is this a current diagnosis for this admission?: Yes - Time Spent with Patient Time with patient: Less than 15 minutes Medications reviewed and adjusted accordingly: Yes - Disposition Anticipated Discharge: Home Within: within 24 hours - follow H&H and continue routine pp care
[2019-03-27] MEDS: DOCUSATE SODIUM 100 MG CAPSULE PO SCH ×2 (09:08→17:19)
[2019-03-27] MEDS: MISOPROSTOL 0.2 MG TABLET PO SCH ×3 (09:13→21:00)
[2019-03-27] MEDS: PRENATAL VITAMIN W DHA CAPSULE PO SCH (10:01)
[2019-03-27] MEDS: OXYCODONE-ACETAMINOPHEN 5-325 MG TABLET PO PRN (10:36)
[2019-03-27] MEDS: SIMETHICONE 80 MG TAB.CHEW PO PRN ×2 (10:47→23:08)
[2019-03-27 11:39] LABS: ABSOLUTE MONOCYTES (AUTO) 0.7 10^3/uL (0.1-1.4); ABSOLUTE NEUT (AUTO) 9.5 10^3/uL (1.7-8.2); BASOPHILS % (AUTO) 0.2 % (0-2); EOSINOPHILS % (AUTO) 0.3 % (0-6); HEMATOCRIT 25.5 % (36.0-47.0); HEMOGLOBIN 8.4 g/dL (12.0-15.5); MEAN CORPUSCULAR HEMOGLOBIN 29.6 pg (27.0-33.4); MEAN CORPUSCULAR HGB CONC 33.1 g/dL (32.0-36.0); MEAN CORPUSCULAR VOLUME 90 fl (80-97); PLATELET COUNT 269 10^3/uL (150-450); RED BLOOD COUNT 2.85 10^6/uL (3.72-5.28); RED CELL DISTRIBUTION WIDTH 13.7 % (11.5-14.0); SEGMENTED NEUTROPHILS % (AUTO) 77.5 % (42-78); TOTAL CELLS COUNTED % (AUTO) 100 %; WHITE BLOOD COUNT 12.2 10^3/uL (4.0-10.5)
--- NOTE | 2019-03-27 12:40 | Delivery Summary ---
Del Sum A-C Datetime Report Generated by CPN: 03/27/2019 12:40 DELIVERY PERSONNEL DELIVERY PERSONNEL: [id number] Delivery Doctor:: Kailee Fiore MD Anesthesiologist:: Mike Gates MD THERAPEUTIC CONSULTANT:: Ricardo Dixon THERAPEUTIC CONSULTANT Senior Informatica Etl Developer:: Danika Mccain RN Neonatal Nurse Practitioner:: HIMANSHU Rea Nursery Nurse:: Karyn Rodriguez RN Psychiatric Orderly/PARAEDUCATOR: ST Cris Psychiatric Orderly/PARAEDUCATOR: Lalitha Klein, ST MATERNAL INFORMATION Delivery Anesthesia: Spinal Medications After Delivery: Pitocin Bolus-Please Comment Meds After Delivery Comment: Pitocin 60 units Maternal Complications: None LABOR SUMMARY EDC: 04/01/2019 00:00 No. Babies in Womb: 1 LABOR INFORMATION Reason for Induction: Not Applicable Group B Beta Strep: positive MEMBRANES Membranes Rupture Method: Artificial Rupture of Membranes: 03/26/2019 09:23 Length of Rupture (hr): -23.98 Amniotic Fluid Color: Clear Amniotic Fluid Amount: Moderate STAGES OF LABOR Stage 3 hr: 24 Stage 3 min: 1 VAGINAL DELIVERY Episiotomy: None Laceration #1: None Laceration Extension #1: N/A Sponge Count Correct: N/A CSECTION DELIVERY Primary Indication: Repeat Elective Secondary Indication: Repeat Elective CSection Urgency: Scheduled CSection Incidence: Repeat Labor: N/A Elective: Elective CSection Incision: Lower Uterine Transverse BABY A INFORMATION Infant Delivery Date/Time: 03/25/2019 09:24 Method of Delivery: Born in Route : No : N/A Forceps: N/A Vacuum Extraction: N/A Shoulder Dystocia : No PRESENTATION/POSITION BABY A Presentation: Cephalic Cephalic Presentation: Vertex Breech Presentation: N/A PLACENTA INFORMATION BABY A Placenta Delivery Time : 03/26/2019 09:25 Placenta Method of Delivery: Manual Removal Placenta Status: Delivered SCORES BABY A Heart Rate 1 min: >100 bpm Resp Effort 1 min: Good Cry Reflex Irritability 1 min: Cough or Sneeze or Pulls Away Muscle Tone 1 min: Active Motion Color 1 min: Body Waldron, Extremities Blue Resuscitation Effort 1 min: Tactile Stimulation SCORE 1 MIN: 9 Heart Rate 5 min: >100 bpm Resp Effort 5 min: Good Cry Reflex Irritability 5 min: Cough or Sneeze or Pulls Away Muscle Tone 5 min: Active Motion Color 5 min: Body Waldron, Extremities Blue SCORE 5 MIN: 9 INFANT INFORMATION BABY A Gestational Age at Delivery: 39.1 Gestational Status: Full Term- 39- 40.6 Weeks Outcome : Liveborn Condition : Stable Sex: Male IDENTIFICATION BABY A Verification Date/Time: 03/26/2019 09:25 ID Band Number: [id number] Mother's Name Verified: Yes Infant RN Verifying Infant: AlanaСЕРГЕЙ Mccain and MckennaMariaaСЕРГЕЙ Rodriguez WEIGHT/LENGTH BABY A Infant Birthweight (gm): 3715 Weight (lb): 8 Infant Weight (oz): 3 Infant Length (in): 21.00 Length (cm): 53.34 CORD INFORMATION BABY A No. Cord Vessels: 3 Nuchal Cord : N/A Cord Blood Taken: Yes-For Eval (Mom's Blood Type - or O+)
[2019-03-27] MEDS: IBUPROFEN 800 MG TABLET PO SCH ×3 (14:08→23:08)
[2019-03-27] MEDS ORDERED: HYDROCODONE/ACETAMINOPHEN 5-325 MG TABLET PO PRN (17:27)
[2019-03-27] MEDS: HYDROCODONE/ACETAMINOPHEN 5-325 MG TABLET PO PRN (17:44)
--- NOTE | 2019-03-27 20:49 | RADIOLOGY REPORT (SQ) ---
EXAM DESCRIPTION: CT ABDOMEN PELVIS WITH IV CONTRAST COMPLETED DATE/TME: 03/27/2019 00:00 CLINICAL HISTORY: 23 years, Female, suspecting a hematoma COMPARISON: Prior study from 05/22/2017 TECHNIQUE: Contrast enhanced CT of the abdomen/pelvis was performed. Coronal and sagittal reformations were created. Images stored on PACS. All CT scanners at this facility use dose modulation, iterative reconstruction, and/or weight based dosing when appropriate to reduce radiation dose to as low as reasonably achievable (ALARA). [facility]: Dose Right [facility]: CareDose [facility]: Dose Right [facility]: Teradose 4D [facility]: Mydeo LIMITATIONS: None. FINDINGS: Limited evaluation of the lower chest reveals trace bilateral pleural effusions with associated bibasilar atelectasis. The liver, spleen, pancreas, gallbladder, and both adrenal glands appear normal. A suspected small hyperdensity is noted about the lower pole of the right kidney measuring approximately 0.3 cm in size on image 40 of series 3, raising the possibility of a small nephrolith. Both kidneys otherwise enhance symmetrically. No hydronephrosis or hydroureter. Delayed images reveal no focal filling defects or mucosal anomalies. The urinary bladder is partially collapsed, thus evaluation is limited. The uterus is diffusely enlarged and heterogenous in attenuation, likely indicating post gravid state. Scattered foci of gas density are noted about the uterus is well, also presumably postoperative. However, there is inflammatory stranding about the space of Retzius with additional mixed fluid and gas density located about the rectus sheath, space of Retzius, and subcutaneous soft tissues of the anterior/inferior abdominal wall. In addition, there is a small amount of pneumoperitoneum. Likewise, there is a focal linear area of hypodensity located about the anterior/inferior uterus, indicating recent section. There is a short segment of dilated transverse colon, particularly the proximal to mid transverse segments. No definitive transition point is identified. Additional small amount of fluid and gas is noted about the endocervical canal. Bone windows show no destructive osseous lesions. IMPRESSION: Postoperative changes of /postgravid uterus. A moderate amount of inflammatory stranding/fluid/gas is noted about the space of Retzius as well as within the inferior aspect of the rectus sheath, presumably postsurgical in etiology. A small amount of blood product at these locations is a possibility. However, no well-demarcated large hematoma is clearly identified. A small amount of pneumoperitoneum is also evident, also likely postsurgical. Suspect nonobstructive right nephrolithiasis. Trace bilateral pleural effusions with bibasilar atelectasis. TECHNICAL DOCUMENTATION: Quality ID # [id number]: Final reports with documentation of one or more dose reduction techniques (e.g., Automated exposure control, adjustment of the mA and/or kV according to patient size, use of iterative reconstruction technique) copyright 2011 [employer]- All Rights Reserved
[2019-03-28] MEDS: HYDROCODONE/ACETAMINOPHEN 5-325 MG TABLET PO PRN (00:45)
[2019-03-28] MEDS: HYDROMORPHONE HCL INJ/PF 2 MG/ML AMPULE IV PRN (02:07)
[2019-03-28] MEDS: IBUPROFEN 800 MG TABLET PO SCH (05:17)
[2019-03-28] MEDS: SIMETHICONE 80 MG TAB.CHEW PO PRN (05:17)
[2019-03-28] MEDS: DOCUSATE SODIUM 100 MG CAPSULE PO SCH (09:55)
[2019-03-28] MEDS: PRENATAL VITAMIN W DHA CAPSULE PO SCH (09:55)
[2019-03-28] MEDS ORDERED: FERROUS SULFATE 325 MG TABLET PO SCH (10:15)
--- NOTE | 2019-03-28 10:23 | PDOC PROGRESS REPORT ---
Subjective-OB Progress Note for:: 03/28/19 - POD #2, s/p Rpt . Pt c/o increased left sided upper abdominal pain yesterday. Had CT scan last evening, please see report, Pt states she is passing gas and less pain this morning. O+,Rubella Im mune, Physical Exam (OB) Vital Signs: Temp Pulse Resp BP Pulse Ox 98.2 F 92 18 133/90 H 99 03/28/19 08:00 03/28/19 08:00 03/28/19 08:00 03/28/19 08:00 03/28/19 08:00 Intake & Output 03/27/19 03/28/19 03/29/19 06:59 06:59 06:59 Intake Total 1950 3960 Output Total 1675 880 Balance 275 3080 - General General Appearance: Appears well, Alert In distress: None - PIH/Pre-Eclampsia DTR's: 1 + Clonus: Negative Headache: Absent Epigastric Pain: No Visual Changes: No - Dressing Removed: - Open to air Incision: Well Approximated Closure Type: Surgical Glue - Lochia Lochia Amount: Scant < 10 ml Lochia Color: Rubra/Red - Abdomen Description: Tender, Soft, Round Hernia Present: No Bowel Sounds: Hypoactive Flatus Presence: Present Fundal Description: Firm, Midline Fundal Height: u/u - u/2 Abdomen Note: soft on palpation, no distention noted - Respiratory Respiratory Status: No respiratory distress - Abdominal Inspection: Gravid female Distension: No distension - Genitourinary Genitourinary Note: voiding - Extremities Upper extremity: Normal inspection Lower extremities: Normal inspection - Neurological Cognition: Normal Orientation: AAOx4 - Psychological Associated symptoms: Normal affect, Normal mood - Skin Skin Temperature: Warm Skin Moisture: Dry Objective-Diagnostic Laboratory: 03/27/19 11:33 03/25/19 11:02 03/27/19 11:33 WBC 12.2 H RBC 2.85 L Hgb 8.4 L Hct 25.5 L MCV 90 MCH 29.6 MCHC 33.1 RDW 13.7 Plt Count 269 Seg Neutrophils % 77.5 Assessment and Plan(PN) - Assessment and Plan (1) Anemia, Is this a current diagnosis for this admission?: Yes (2) Pelvic adhesive disease Is this a current diagnosis for this admission?: Yes (3) S/P repeat low transverse Is this a current diagnosis for this admission?: Yes - Time Spent with Patient Time with patient: Less than 15 minutes Medications reviewed and adjusted accordingly: Yes - Disposition Anticipated Discharge: Home Within: within 24 hours - ambulation encourged
[2019-03-28 13:25] VITALS: BP 137/81
== END 2019-03-28 15:27 | disposition home or self-care (01) | DRG 788 ==
LOC: LR 05:14 → 2S 11:49
PROVIDERS: ADMIT Student in an Organized Health Care Education/Training Program; ATTEND Student in an Organized Health Care Education/Training Program
PROC: 10D00Z1 Extraction of Products of Conception, Low, Open Approach (ICD-10-PCS; principal; 2019-03-26)
PROC: 0JNC0ZZ Release Pelvic Region Subcutaneous Tissue and Fascia, Open Approach (ICD-10-PCS; 2019-03-26)
DX: O34.211 Maternal care for low transverse scar from previous cesarean delivery (principal); N85.8 Other specified noninflammatory disorders of uterus; O13.3 Gestational [pregnancy-induced] hypertension without significant proteinuria, third trimester; O99.89 Other specified diseases and conditions complicating pregnancy, childbirth and the puerperium; O99.824 Streptococcus B carrier state complicating childbirth; N73.6 Female pelvic peritoneal adhesions (postinfective); O90.81 Anemia of the puerperium; D64.9 Anemia, unspecified; Z3A.39 39 weeks gestation of pregnancy; Z37.0 Single live birth
CPT/HCPCS: 1961; 36415; 74177; 80053; 80307; 81001; 82570; 83615; 84156; 84550; 85025; 85027; 86592; 86850; 86900; 86901; 87491; 87591; 94799; J0131; J1170; J1885; J2250; J2370; J2405; J2590; J3010; J3490; J7120

== ENCOUNTER 2019-04-05 18:42 | Inpatient (IN) | payer MEDICAID ==
[2019-04-05] MEDS ORDERED: ONDANSETRON HCL INJ/PF 4 MG/2 ML SDV IV ONE (19:21)
[2019-04-05] MEDS ORDERED: ACETAMINOPHEN 325 MG TABLET PO ONE (19:21)
--- NOTE | 2019-04-05 19:24 | ER Document Report ---
ED Medical Screen (RME) - General Chief Complaint: Headache Stated Complaint: HEADACHE Time Seen by Provider: 04/05/19 19:18 Primary Care Provider: MARYLU GOEL DO [Primary Care Provider] - Follow up as needed TRAVEL OUTSIDE OF THE [place] IN LAST 30 DAYS: No - HPI Notes: 04/05/19 19:22 Patient is a 23-year-old female who presents complaining of a right-sided headache with light sensitivity associated ongoing for the past 3 days and nasal congestion/discharge. Patient states that the pain has been lingering. This is not the worst headache of her life. She does not have a history of recurrent headaches otherwise. She has been seen by [facility] with her elevated blood pressure and she is currently on a beta-stevie. Patient is breast-feeding. She is able to eat and drink without difficulty, but does have a decreased p.o. intake. She is urinating normally. Denies any fever, head injury, neck pain, changes in speech/mentation/hearing, sore throat, chest pain, palpitations, syncope, cough, shortness of breath, wheeze, dyspnea, abdominal pain, vomiting/diarrhea, urinary retention, dysuria, hematuria, loss of control of bowel or bladder, numbness/tingling, saddle anesthesia, muscle paralysis/weakness, or rash. I have treated and performed a rapid initial assessment of this patient. A comprehensive ED assessment and evaluation of the patient, analysis of test results and completion of medical decision making process will be conducted by additional ED providers. PHYSICAL EXAMINATION: GENERAL: Well-appearing, well-nourished and in no acute distress. A&Ox4. Answers questions appropriately. NEUROLOGICAL: Normal speech, normal gait. Cranial nerves grossly intact. GCS 15. NIH 0. PSYCH: Normal mood, normal affect. - Related Data Allergies/Adverse Reactions: Penicillins Allergy (Verified 04/05/19 19:20) Hives Past Medical History Renal/ Medical History: Denies: Hx Peritoneal Dialysis Past Surgical History: Reports: Hx Section - x1 - Immunizations Hx Diphtheria, Pertussis, Tetanus Vaccination: Yes History of Influenza Vaccine for 04/2017 - 09/2017 Season: Refused Physical Exam - Vital signs Vitals: Temp Pulse Resp BP Pulse Ox 99.2 F 87 14 150/103 H 97 04/05/19 19:02 04/05/19 19:02 04/05/19 19:02 04/05/19 19:02 04/05/19 19:02 Course - Vital Signs Vital signs: Temp Pulse Resp BP Pulse Ox 99.2 F 87 14 150/103 H 97 04/05/19 19:02 04/05/19 19:02 04/05/19 19:02 04/05/19 19:02 04/05/19 19:02 Doctor's Discharge - Discharge Referrals: MARYLU GOEL DO [Primary Care Provider] - Follow up as needed
[2019-04-05 19:58] LABS: ABSOLUTE EOSINOPHILS # (AUTO) 0.1 10^3/uL (0.0-0.6); ABSOLUTE LYMPHOCYTES (AUTO) 3.9 10^3/uL (0.5-4.7); ABSOLUTE MONOCYTES (AUTO) 0.6 10^3/uL (0.1-1.4); BASOPHILS % (AUTO) 0.3 % (0-2); EOSINOPHILS % (AUTO) 0.7 % (0-6); HEMATOCRIT 30.2 % (36.0-47.0); LYMPHOCYTES % (AUTO) 26.8 % (13-45); MEAN CORPUSCULAR HEMOGLOBIN 29.6 pg (27.0-33.4); MEAN CORPUSCULAR HGB CONC 33.1 g/dL (32.0-36.0); MEAN CORPUSCULAR VOLUME 89 fl (80-97); MONOCYTES % (AUTO) 3.8 % (3-13); RED BLOOD COUNT 3.38 10^6/uL (3.72-5.28); SEGMENTED NEUTROPHILS % (AUTO) 68.4 % (42-78); TOTAL CELLS COUNTED % (AUTO) 100 %; WHITE BLOOD COUNT 14.7 10^3/uL (4.0-10.5)
[2019-04-05 20:09] LABS: ALBUMIN 3.8 g/dL (3.5-5.0); ALKALINE PHOSPHATASE 145 U/L (38-126); ANION GAP 11 (5-19); ASPARTATE AMINO TRANSFERASE 23 U/L (14-36); BILIRUBIN,DIRECT 0.1 mg/dL (0.0-0.4); BILIRUBIN,TOTAL 0.2 mg/dL (0.2-1.3); BLOOD UREA NITROGEN 12 mg/dL (7-20); CALCIUM 9.6 mg/dL (8.4-10.2); CARBON DIOXIDE 29 mmol/L (22-30); CHLORIDE 98 mmol/L (98-107); GLUCOSE 89 mg/dL (75-110); POTASSIUM 4.8 mmol/L (3.6-5.0)
[2019-04-05 20:27] LABS: PLATELET COUNT 1042 10^3/uL (150-450)
[2019-04-05 21:16] LABS: APPEARANCE,URINE CLEAR; BILIRUBIN,URINE NEGATIVE (NEGATIVE); COLOR,URINE STRAW; GLUCOSE, URINE NEGATIVE (NEGATIVE); KETONES,URINE NEGATIVE (NEGATIVE); LEUKOCYTE ESTERASE,URINE LARGE (NEGATIVE); NITRITE,URINE NEGATIVE (NEGATIVE); PROTEIN,URINE NEGATIVE (NEGATIVE); UROBILINOGEN,URINE NEGATIVE mg/dL (<2.0)
[2019-04-05 21:27] LABS: URINE SPECIFIC GRAVITY 1.007
--- NOTE | 2019-04-05 21:58 | ER Document Report ---
ED Headache - General Chief Complaint: Headache Stated Complaint: HEADACHE Time Seen by Provider: 04/05/19 19:18 Primary Care Provider: MARYLU GOEL DO [Primary Care Provider] - Follow up as needed Notes: KEMI NOTE: Patient is a 23-year-old female who presents complaining of a right-sided headache with light sensitivity associated ongoing for the past 3 days and nasal congestion/discharge. Patient states that the pain has been lingering. This is not the worst headache of her life. She does not have a history of recurrent headaches otherwise. She has been seen by ENVIRONMENTAL TECHNOLOGY PROFESSOR with her elevated blood pressure and she is currently on a beta-stevie. Patient is breast-feeding. She is able to eat and drink without difficulty, but does have a decreased p.o. intake. She is urinating normally. Denies any fever, head injury, neck pain, changes in speech/mentation/hearing, sore throat, chest pain, palpitations, syncope, cough, shortness of breath, wheeze, dyspnea, abdominal pain, vomiting/diarrhea, urinary retention, dysuria, hematuria, loss of control of bowel or bladder, numbness/tingling, saddle anesthesia, muscle paralysis/weakness, or rash. My HPI: Patient voices that today she was started on labetalol 100 mg as well as Lasix 20 mg. States she is only taken 1 dose of both. Patient states her headache was slow onset, in her forehead and behind bilateral eyes. Patient's denying any nausea or vomiting at this time. TRAVEL OUTSIDE OF THE [place] IN LAST 30 DAYS: No - Related Data Allergies/Adverse Reactions: Penicillins Allergy (Verified 04/05/19 19:20) Hives Past Medical History - General Information source: Patient - Social History Smoking Status: Never Smoker Frequency of alcohol use: None Drug Abuse: None Family History: Reviewed & Not Pertinent Patient has suicidal ideation: No Patient has homicidal ideation: No - Past Medical History Cardiac Medical History: Reports: Hx Hypertension Renal/ Medical History: Denies: Hx Peritoneal Dialysis Past Surgical History: Reports: Hx Section - x1 - Immunizations Hx Diphtheria, Pertussis, Tetanus Vaccination: Yes Review of Systems - Review of Systems Constitutional: denies: Fever EENT: See HPI Cardiovascular: No symptoms reported Respiratory: No symptoms reported Gastrointestinal: No symptoms reported Genitourinary: No symptoms reported Female Genitourinary: No symptoms reported Musculoskeletal: No symptoms reported Skin: No symptoms reported Hematologic/Lymphatic: No symptoms reported Neurological/Psychological: No symptoms reported Physical Exam - Vital signs Vitals: Temp Pulse Resp BP Pulse Ox 99.2 F 87 14 150/103 H 97 04/05/19 19:02 04/05/19 19:02 04/05/19 19:02 04/05/19 19:02 04/05/19 19:02 - Notes Notes: GENERAL: Alert, interacts well. No acute distress. HEAD: Normocephalic, atraumatic. EYES: Pupils equal, round, and reactive to light. Extraocular movements intact. ENT: Oral mucosa moist, tongue midline. NECK: Full range of motion. Supple. Trachea midline. LUNGS: Clear to auscultation bilaterally, no wheezes, rales, or rhonchi. No respiratory distress. HEART: Regular rate and rhythm. No murmur ABDOMEN: Soft, non-tender. Non-distended. Bowel sounds present in all 4 quadrants. EXTREMITIES: Moves all 4 extremities spontaneously. No edema, normal radial and dorsalis pedis pulses bilaterally. No cyanosis. 5 out of 5 noted all 4 extremities. BACK: no cervical, thoracic, lumbar midline tenderness. No saddle anesthesia, no rmal distal neurovascular exam. NEUROLOGICAL: Alert and oriented x3. Normal speech. cranial nerves II through XII grossly intact. PSYCH: Normal affect, normal mood. SKIN: Warm, dry, normal turgor. No rashes or lesions noted. Course - Re-evaluation Re-evalutation: 04/05/19 21:55 Patient's platelet count was noted to be 1042. I discussed this with Dr. case, ENVIRONMENTAL TECHNOLOGY PROFESSOR. She would like the patient admitted to . I have gone in to discuss this with patient at bedside. Patient is currently feeding her child, in no apparent distress, laughing with gentleman in the room with her. - Vital Signs Vital signs: Temp Pulse Resp BP Pulse Ox 99.2 F 87 14 150/100 H 99 04/05/19 19:02 04/05/19 19:02 04/05/19 19:02 04/05/19 20:00 04/05/19 20:01 - Laboratory Result Diagrams: 04/05/19 19:33 04/05/19 19:33 Laboratory results interpreted by me: 04/05/19 04/05/19 04/05/19 19:33 19:33 20:48 WBC 14.7 H RBC 3.38 L Hgb 10.0 L Hct 30.2 L Plt Count 1042 H* Absolute Neuts (auto) 10.0 H Alkaline Phosphatase 145 H Urine Blood MODERATE H Ur Leukocyte Esterase LARGE H Discharge - Discharge Clinical Impression: Thrombocytosis Condition: Stable Disposition: ADMITTED INPATIENT Admitting Provider: Dr. case Unit Admitted: Post Referrals: MARYLU GOEL DO [Primary Care Provider] - Follow up as needed
[2019-04-05 22:23] LABS: INTERNATIONAL RATION (INR) 1.01; PROTHROMBIN TIME 13.3 SEC (11.4-15.4)
[2019-04-05 22:24] LABS: PARTIAL THROMBOPLASTIN TIME 31.6 SEC (23.5-35.8)
[2019-04-06] MEDS ORDERED: PRAMOXINE HCL/MINERAL OIL/ZNOX OINT 28.3 GM PR PRN (00:21)
[2019-04-06] MEDS ORDERED: BUTALB/ACETAMINOPHEN/CAFFEINE 1 TAB EACH PO PRN (00:21)
[2019-04-06] MEDS ORDERED: KETOROLAC TROMETHAMINE INJ/PF 30 MG/1 ML SDV IV ONE (00:52)
[2019-04-06] MEDS ORDERED: DIBUCAINE 1% OINTMENT 56 GM TP PRN (00:53)
[2019-04-06] MEDS ORDERED: FUROSEMIDE 20 MG TABLET PO ONE (01:00)
[2019-04-06] MEDS ORDERED: LABETALOL HCL 200 MG TABLET PO ONE (01:00)
--- NOTE | 2019-04-06 01:01 | PDOC H&P ---
History of Present Illness Admission Date/PCP: 04/05/19 22:09 MARYLU FAUSTIN DO Patient complains of: Headache since --no meds taken History of Present Illness: BRANDON WAGONER is a 23 year old , who is status post repeat section, on March 26, performed by Dr. Fiore, presented to [facility] emergency department secondary to a severe headache. This patient stated that her postoperative course was essentially uneventful. On , she developed a headache which never went away. She did not try any OTC meds. She followed up in the office on Saturday, for her 1 week incision check. Her blood pressure was elevated and she had a mild headache. Patient was prescribed Lasix and labetalol. Patient stated that she did not start her medication until Saturday morning. She only had one dose of each medication. She had a headache all day Saturday and finally presented to the emergency department on Saturday complaining of a headache and blurred vision. Her blood pressure was 150/103. Patient was given IV blood pressure medication, which resolved her hypertension. She underwent a preeclampsia work-up which was negative. However, her platelets were 1000 K. Patient denies chest pain, shortness of breath, fever/chills and nausea/vomiting. Patient states that she is ambulating and voiding without difficulty. She is breast-feeding which is going well. Past Medical History LMP: recent childbirth 03/26/19 Gynecological Infection: No 1 Baby 1 Delivery: : Low Cervical, Transverse 2 Baby 2 Year: 2,019 Delivery: : Low Cervical, Transverse Cardiac Medical History: Reports: Hypertension Past Surgical History Past Surgical History: Reports: Section - x2 Social History Smoking Status: Never Smoker Family History Family History: Reviewed & Not Pertinent Parental Family History Reviewed: Yes Children Family History Reviewed: NA Sibling(s) Family History Reviewed.: NA Medication/Allergy Home Medications: 95/Iron Fum/Folic/Dha [ + Dha Combo Pack] 1 each PO DAILY 10/07 Furosemide [Lasix 20 mg Tablet] DAILY 04/05/19 Labetalol HCl 100 mg PO BID 04/05/19 Allergies/Adverse Reactions: Penicillins Allergy (Verified 04/05/19 19:20) Hives Review of Systems Cardiovascular: PRESENT: as per HPI Respiratory: PRESENT: as per HPI Gastrointestinal: PRESENT: as per HPI Neurological: PRESENT: other - Persistent headache and some blurred vision Physical Exam - Physical Exam Vital Signs: Temp Pulse Resp BP Pulse Ox 98.1 F 72 16 115/91 H 100 04/05/19 23:05 04/05/19 23:05 04/05/19 23:05 04/05/19 23:05 04/05/19 23:05 Intake & Output 04/04/19 04/05/19 04/06/19 06:59 06:59 06:59 Weight 78.3 kg General appearance: PRESENT: no acute distress Respiratory exam: PRESENT: clear to auscultation yuan Cardiovascular exam: PRESENT: RRR GI/Abdominal exam: PRESENT: normal bowel sounds, soft - Incision well-healed Rectal exam: PRESENT: hemorrhoids Extremities exam: ABSENT: calf tenderness, clubbing, full ROM, joint swelling, pedal edema, tenderness, +1 edema, +2 edema, other Result Laboratory Results: 04/05/19 19:33 04/05/19 19:33 04/05/19 04/05/19 04/05/19 19:33 19:33 20:48 WBC 14.7 H RBC 3.38 L Hgb 10.0 L Hct 30.2 L MCV 89 MCH 29.6 MCHC 33.1 RDW 14.0 Plt Count 1042 H* Seg Neutrophils % 68.4 Sodium 138.0 Potassium 4.8 Chloride 98 Carbon Dioxide 29 Anion Gap 11 BUN 12 Creatinine 0.79 Est GFR ( Amer) > 60 Glucose 89 Calcium 9.6 Total Bilirubin 0.2 AST 23 Alkaline Phosphatase 145 H Total Protein 7.0 Albumin 3.8 Urine Color STRAW Urine Appearance CLEAR Urine pH 8.0 Ur Specific [place] 1.007 Urine Protein NEGATIVE Urine Glucose (UA) NEGATIVE Urine Ketones NEGATIVE Urine Blood MODERATE H Urine Nitrite NEGATIVE Ur Leukocyte Esterase LARGE H Urine WBC (Auto) 9 Urine RBC (Auto) 1 Assessment & Plan - Diagnosis (1) Headache Qualifiers: Headache type: new daily persistent Qualified Code(s): G44.52 - New daily persistent headache (NDPH) Is this a current diagnosis for this admission?: Yes (2) Hypertension Qualifiers: Hypertension type: other secondary hypertension Qualified Code(s): I15.8 - Other secondary hypertension Is this a current diagnosis for this admission?: Yes (3) Thrombocytosis Is this a current diagnosis for this admission?: Yes (4) Anemia, Is this a current diagnosis for this admission?: Yes - Time Time Spent: 30 to 50 Minutes - Inpatient Certification Based on my medical assessment, after consideration of the patient's comorbidities, presenting symptoms, or acuity I expect that the services needed warrant INPATIENT care.: Yes I certify that my determination is in accordance with my understanding of Medicare's requirements for reasonable and necessary INPATIENT services [42 CFR 412.3e].: Yes Medical Necessity: Need Close Monitoring Due to Risk of Patient Decompensation - Plan Summary Plan Summary: 1. Pain control for headache 2. Manage blood pressure 3. Re-check plts--if truly thrombocytosis, give prophylaxis for hypercoagulable state
[2019-04-06 01:02] LABS: ABSOLUTE BASOPHILS # (AUTO) 0.1 10^3/uL (0.0-0.2); ABSOLUTE EOSINOPHILS # (AUTO) 0.1 10^3/uL (0.0-0.6); ABSOLUTE LYMPHOCYTES (AUTO) 3.9 10^3/uL (0.5-4.7); ABSOLUTE MONOCYTES (AUTO) 0.5 10^3/uL (0.1-1.4); ABSOLUTE NEUT (AUTO) 8.5 10^3/uL (1.7-8.2); HEMATOCRIT 28.3 % (36.0-47.0); HEMOGLOBIN 9.4 g/dL (12.0-15.5); LYMPHOCYTES % (AUTO) 29.6 % (13-45); MEAN CORPUSCULAR HEMOGLOBIN 29.3 pg (27.0-33.4); MEAN CORPUSCULAR HGB CONC 33.1 g/dL (32.0-36.0); MEAN CORPUSCULAR VOLUME 88 fl (80-97); MONOCYTES % (AUTO) 3.7 % (3-13); PLATELET COUNT 950 10^3/uL (150-450); RED CELL DISTRIBUTION WIDTH 13.6 % (11.5-14.0); SEGMENTED NEUTROPHILS % (AUTO) 64.7 % (42-78); TOTAL CELLS COUNTED % (AUTO) 100 %; WHITE BLOOD COUNT 13.1 10^3/uL (4.0-10.5)
[2019-04-06] MEDS ORDERED: HEPARIN SOD (PORCINE) 5,000 UNIT/ML 1 ML VIAL SUBCUT ONE (02:43)
[2019-04-06] MEDS ORDERED: HEPARIN SOD (PORCINE) 5,000 UNIT/ML 1 ML VIAL ONE (04:50)
[2019-04-06] MEDS: GLYCERIN/WITCH HAZEL LEAF 1 EACH MED..WIPE TP PRN (04:53)
[2019-04-06] MEDS: FUROSEMIDE 20 MG TABLET PO SCH (09:04)
[2019-04-06] MEDS: LABETALOL HCL 200 MG TABLET PO SCH ×2 (09:05→21:17)
--- NOTE | 2019-04-06 14:51 | PDOC CONSULTATION ---
Consultation Consult Date: 04/06/19 Provider Consulted: MATT GAUTHIER Consult reason:: Hematology/Oncology consultation was requested for patient with elevated PLT count after delivery of her second child. History of Present Illness Admission Date/PCP: 04/05/19 22:09 MARYLU FAUSTIN DO History of Present Illness: BRANDON WAGONER is a 23 year old female who underwent of her second child on 03/26/2019. She returned to the office for post-op visit with a new headache and was found to have hypertension. She was started on anti- hypertensives, but headache worsened. She presented to the ED and was found to have BP of 177/97 and Platelet count 1,042,000. Today, she is feeling better. Her BP is now controlled. Her PLT remain elevated. Her baseline PLT count was 240's a few weeks prior. She was also told in the past that she had low iron, but she was not started on any iron supplements. Past Medical History Cardiac Medical History: Reports: Hypertension Past Surgical History Past Surgical History: Reports: Section - x2, Other - Ball teeth estraction Social History Information Source: Patient Lives with: Family Smoking Status: Never Smoker Family History Family History: Reviewed & Not Pertinent Parental Family History Reviewed: Yes Children Family History Reviewed: Yes Sibling(s) Family History Reviewed.: Yes Medication/Allergy Home Medications: Furosemide [Lasix 20 mg Tablet] 20 mg PO DAILY 04/06/19 Labetalol HCl [Trandate] 100 mg PO Q12 04/06/19 Pnv No.95/Ferrous Fum/Folic AC [ Caplet] 1 tab PO DAILY 04/06/19 Allergies/Adverse Reactions: Penicillins Allergy (Verified 04/05/19 19:20) Hives Review of Systems Constitutional: PRESENT: headache(s). ABSENT: fever(s) Eyes: ABSENT: visual disturbances Ears: ABSENT: hearing changes Nose, Mouth, and Throat: PRESENT: headache(s) Cardiovascular: ABSENT: chest pain Respiratory: ABSENT: dyspnea Gastrointestinal: PRESENT: abdominal pain Genitourinary: ABSENT: dysuria Integumentary: ABSENT: rash Neurological: ABSENT: confusion Hematologic/Lymphatic: ABSENT: easy bleeding Physical Exam Vital Signs: Temp Pulse Resp BP Pulse Ox 98.3 F 81 16 140/80 H 97 04/06/19 11:42 04/06/19 11:42 04/06/19 11:42 04/06/19 11:42 04/06/19 11:42 Intake & Output 04/05/19 04/06/19 04/07/19 06:59 06:59 06:59 Intake Total 240 Balance 240 Weight 78.3 kg General appearance: PRESENT: well-developed, well-nourished Exam: 23 year old female. Head exam: PRESENT: atraumatic, normocephalic Eye exam: PRESENT: EOMI Mouth exam: PRESENT: tongue midline Neck exam: ABSENT: lymphadenopathy, tenderness Respiratory exam: PRESENT: clear to auscultation yuan, unlabored Cardiovascular exam: PRESENT: RRR. ABSENT: systolic murmur GI/Abdominal exam: PRESENT: soft, tenderness - At incision Extremities exam: PRESENT: other - SCDs in place. ABSENT: pedal edema Musculoskeletal exam: PRESENT: normal inspection Neurological exam: PRESENT: alert, awake, oriented to person, oriented to place, oriented to time, oriented to situation Psychiatric exam: PRESENT: appropriate affect Skin exam: PRESENT: normal color Results Laboratory Results: 04/06/19 00:45 04/05/19 19:33 04/05/19 04/05/19 04/05/19 19:33 19:33 20:48 WBC 14.7 H RBC 3.38 L Hgb 10.0 L Hct 30.2 L MCV 89 MCH 29.6 MCHC 33.1 RDW 14.0 Plt Count 1042 H* Seg Neutrophils % 68.4 Sodium 138.0 Potassium 4.8 Chloride 98 Carbon Dioxide 29 Anion Gap 11 BUN 12 Creatinine 0.79 Est GFR ( Amer) > 60 Glucose 89 Calcium 9.6 Total Bilirubin 0.2 AST 23 Alkaline Phosphatase 145 H Total Protein 7.0 Albumin 3.8 Urine Color STRAW Urine Appearance CLEAR Urine pH 8.0 Ur Specific [place] 1.007 Urine Protein NEGATIVE Urine Glucose (UA) NEGATIVE Urine Ketones NEGATIVE Urine Blood MODERATE H Urine Nitrite NEGATIVE Ur Leukocyte Esterase LARGE H Urine WBC (Auto) 9 Urine RBC (Auto) 1 04/06/19 00:45 WBC 13.1 H RBC 3.20 L Hgb 9.4 L Hct 28.3 L MCV 88 MCH 29.3 MCHC 33.1 RDW 13.6 Plt Count 950 H Seg Neutrophils % 64.7 Sodium Potassium Chloride Carbon Dioxide Anion Gap BUN Creatinine Est GFR ( Amer) Glucose Calcium Total Bilirubin AST Alkaline Phosphatase Total Protein Albumin Urine Color Urine Appearance Urine pH Ur Specific [place] Urine Protein Urine Glucose (UA) Urine Ketones Urine Blood Urine Nitrite Ur Leukocyte Esterase Urine WBC (Auto) Urine RBC (Auto) Assessment & Plan - Diagnosis (1) Hypertension Qualifiers: Hypertension type: other secondary hypertension Qualified Code(s): I15.8 - Other secondary hypertension Is this a current diagnosis for this admission?: Yes Plan: Much improved on current medications. (2) Thrombocytosis Is this a current diagnosis for this admission?: Yes Plan: Difficult to determine cause at this point. No history of splenectomy. May be reactive. Also could be partially due to iron deficiency. She was given heparin. At this point, she is at high risk of thrombosis due to post- period. However, studies suggest that elevated PLT may cause increased bleeding risk as well. Consider starting ASA 80 mg daily for now. I will continue to monitor this. (3) Anemia, Is this a current diagnosis for this admission?: Yes Plan: I will check iron studies, B12, Folate, as these may be contributing to overall hematology picture. I will be happy to continue to follow with you. - Plan Summary Plan Summary: Patient was discussed with Dr. Gregg.
[2019-04-06 15:33] LABS: ABSOLUTE RETICS # 0.123 10^6/uL (0.028-0.122); RETICULOCYTE COUNT (AUTO) 3.77 % (0.66-2.85)
[2019-04-06 15:58] LABS: IRON(TIBC) 31.5 ug/dL (37-170)
[2019-04-07 06:20] LABS: HEMATOCRIT 30.3 % (36.0-47.0); HEMOGLOBIN 10.3 g/dL (12.0-15.5); MEAN CORPUSCULAR HEMOGLOBIN 29.9 pg (27.0-33.4); MEAN CORPUSCULAR HGB CONC 33.8 g/dL (32.0-36.0); MEAN CORPUSCULAR VOLUME 88 fl (80-97); PLATELET COUNT 972 10^3/uL (150-450); RED BLOOD COUNT 3.43 10^6/uL (3.72-5.28); WHITE BLOOD COUNT 9.7 10^3/uL (4.0-10.5)
[2019-04-07] MEDS: GLYCERIN/WITCH HAZEL LEAF 1 EACH MED..WIPE TP PRN (06:29)
[2019-04-07] MEDS: FUROSEMIDE 20 MG TABLET PO SCH (10:31)
[2019-04-07] MEDS: LABETALOL HCL 200 MG TABLET PO SCH (10:32)
[2019-04-07] MEDS ORDERED: FERRIC CARBOXYMALTOSE INJ 750 MG/15 ML VIAL IV SCH (15:00)
[2019-04-07] MEDS: ASPIRIN 81 MG TABLET, CHEWABLE PO SCH (15:55)
[2019-04-07] MEDS ORDERED: FERRIC CARBOXYMALTOSE 750 MG in NORMAL SALINE 250 ML IV ONE (16:30)
--- NOTE | 2019-04-08 04:45 | PDOC PROGRESS REPORT ---
Subjective Progress Note for:: 04/07/19 Subjective:: +flatus, no pain, feels well, headache resolved. Reason For Visit: THROMBOCYTOSIS Physical Exam - Physical Exam Vital Signs: Temp Pulse Resp BP Pulse Ox 98.1 F 104 H 18 141/83 H 99 04/07/19 15:17 04/07/19 15:17 04/07/19 15:17 04/07/19 15:17 04/07/19 15:17 Intake & Output 04/06/19 04/07/19 04/08/19 06:59 06:59 06:59 Intake Total 240 400 Balance 240 400 Weight 78.3 kg General appearance: PRESENT: no acute distress, well-developed, well-nourished Head exam: PRESENT: atraumatic, normocephalic Neck exam: PRESENT: full ROM. ABSENT: carotid bruit, JVD, lymphadenopathy, thyromegaly Respiratory exam: PRESENT: clear to auscultation yuan, symmetrical, unlabored Cardiovascular exam: PRESENT: RRR. ABSENT: diastolic murmur, rubs, systolic murmur Pulses: PRESENT: normal dorsalis pedis pul, +2 pedal pulses bilateral Vascular exam: PRESENT: normal capillary refill GI/Abdominal exam: PRESENT: normal bowel sounds, soft. ABSENT: distended, guarding, mass, organolmegaly, rebound, tenderness Rectal exam: PRESENT: deferred Extremities exam: PRESENT: full ROM. ABSENT: calf tenderness, clubbing, pedal edema Neurological exam: PRESENT: alert, awake, oriented to person, oriented to place, oriented to time, oriented to situation, CN II-XII grossly intact. ABSENT: motor sensory deficit Psychiatric exam: PRESENT: appropriate affect, normal mood. ABSENT: homicidal ideation, suicidal ideation Result Laboratory Results: 04/07/19 05:58 04/05/19 19:33 04/07/19 05:58 WBC 9.7 RBC 3.43 L Hgb 10.3 L Hct 30.3 L MCV 88 MCH 29.9 MCHC 33.8 RDW 14.0 Plt Count 972 H 04/05/19 20:48 Clean Catch Midstream Urine Culture - Final Group B Beta Streptococcus Status: Imported from PACS Assessment & Plan - Diagnosis (1) Thrombocytosis Is this a current diagnosis for this admission?: Yes Plan: D/w Dr. Newberry. thrombocytosis possible due to iron of anemia. Pt attempted outpatient po Iron but no improvement. She will f/u with patient as outpatient. baby ASA daily. plan injectifier today then cont prn as outpatient. (2) Headache Qualifiers: Headache type: new daily persistent Qualified Code(s): G44.52 - New daily persistent headache (NDPH) Is this a current diagnosis for this admission?: Yes Plan: Headache resolved. (3) Hypertension Qualifiers: Hypertension type: other secondary hypertension Qualified Code(s): I15.8 - Other secondary hypertension Is this a current diagnosis for this admission?: Yes Plan: Hypertension improved on Labetalol 100mg po BID however somewhat overcompensated with some significant hypotensive episodes. Discontinue labetalol and will start procardia. If doing well then plan to discharge tomorrow on Procardia and baby ASA. F/u with [facility] on and then keep f/u with Dr. Newberry. (4) Anemia, Is this a current diagnosis for this admission?: Yes Plan: iron deficiency and also noted blood loss at delivery - however hb/Hct improved since delivery likely due to some immediately pp was dilutional. (5) S/P repeat low transverse Is this a current diagnosis for this admission?: Yes Plan: incision c/d/i - Time Time Spent with patient: 15-24 minutes Medications reviewed and adjusted accordingly: Yes Anticipated discharge: Home Within: within 24 hours - Inpatient Certification Based on my medical assessment, after consideration of the patient's comorbidities, presenting symptoms, or acuity I expect that the services needed warrant INPATIENT care.: Yes I certify that my determination is in accordance with my understanding of Medicare's requirements for reasonable and necessary INPATIENT services [42 CFR 412.3e].: Yes Medical Necessity: Need Close Monitoring Due to Risk of Patient Decompensation - Plan Summary Plan Summary: Discharge home tomorrow.
--- NOTE | 2019-04-08 08:04 | PDOC PROGRESS REPORT ---
Subjective Progress Note for:: 04/08/19 Subjective:: Patient states that she is very tired. Little energy. No other complaints. Family is at bedside this morning. She denies any side effects or reactions from the IV iron. Reason For Visit: THROMBOCYTOSIS Physical Exam Vital Signs: Temp Pulse Resp BP Pulse Ox 97.9 F 68 18 115/55 L 99 04/08/19 04:58 04/08/19 04:58 04/08/19 04:58 04/08/19 04:58 04/08/19 04:58 Intake & Output 04/07/19 04/08/19 04/09/19 06:59 06:59 06:59 Intake Total 400 Balance 400 General appearance: PRESENT: well-developed, well-nourished Head exam: PRESENT: normocephalic Respiratory exam: PRESENT: unlabored Neurological exam: PRESENT: alert, awake Psychiatric exam: PRESENT: appropriate affect Skin exam: PRESENT: normal color Results Laboratory Results: 04/07/19 05:58 04/05/19 19:33 04/05/19 20:48 Clean Catch Midstream Urine Culture - Final Group B Beta Streptococcus Assessment & Plan - Diagnosis (1) Hypertension Qualifiers: Hypertension type: other secondary hypertension Qualified Code(s): I15.8 - Other secondary hypertension Is this a current diagnosis for this admission?: Yes (2) Thrombocytosis Is this a current diagnosis for this admission?: Yes Plan: This is most likely reactive from iron deficiency and post- immune reaction. She has been started on ASA 81 mg and should continue this at home. I will se her again in 2-4 weeks as outpatient to make sure that this improves. I have ordered JAK2 testing, but this may take 2 weeks to result. (3) Anemia, Is this a current diagnosis for this admission?: Yes Plan: Her ferritin was low. She was given 1 dose of injectafer yesterday. I will follow this as outpatient. - Plan Summary Plan Summary: Ok for discharge from my standpoint. Please call if anything else. I will sign off.
[2019-04-08] MEDS ORDERED: NIFEDIPINE 30 MG TAB.ER.24 PO SCH (10:00)
[2019-04-08] MEDS: FUROSEMIDE 20 MG TABLET PO SCH (10:14)
[2019-04-08] MEDS: ASPIRIN 81 MG TABLET, CHEWABLE PO SCH (10:14)
--- NOTE | 2019-04-08 11:31 | PDOC DISCHARGE SUMMARY ---
General - Admit/Disc Date/PCP Admission Date/Primary Care Provider: 04/05/19 22:09 MARYLU FAUSTIN, Discharge Date: 04/08/19 - Discharge Diagnosis (1) Headache Is this a current diagnosis for this admission?: Yes (2) Hypertension Is this a current diagnosis for this admission?: Yes (3) Thrombocytosis Is this a current diagnosis for this admission?: Yes (4) Anemia, Is this a current diagnosis for this admission?: Yes - Additional Information Discharge Diet: Regular Discharge Activity: No Lifting Over 10 Pounds, Pelvic Rest, Slowly Increase Activity Home Medications: Furosemide [Lasix 20 mg Tablet] 20 mg PO DAILY 04/06/19 Labetalol HCl [Trandate] 100 mg PO Q12 04/06/19 Pnv No.95/Ferrous Fum/Folic AC [ Caplet] 1 tab PO DAILY 04/06/19 History of Present Illness Patient complains of: headaches and elevated blood pressure History of Present Illness: BRANDON WAGONER is a 23 year old , who is status post repeat section, on March 26, performed by Dr. Fiore, presented to [facility] emergency department secondary to a severe headache. This patient stated that her postoperative course was essentially uneventful. On , she developed a headache which never went away. She did not try any OTC meds. She followed up in the office on Saturday, for her 1 week incision check. Her blood pressure was elevated and she had a mild headache. Patient was prescribed Lasix and labetalol. Patient stated that she did not start her medication until Saturday morning. She only had one dose of each medication. She had a headache all day Saturday and finally presented to the emergency department on Saturday complaining of a headache and blurred vision. Her blood pressure was 150/103. Patient was given IV blood pressure medication, which resolved her hypertension. She under went a preeclampsia work-up which was negative. However, her platelets were 1000 K. Patient denies chest pain, shortness of breath, fever/chills and nausea/vomiting. Patient states that she is ambulating and voiding without difficulty. She is breast-feeding which is going well. Hospital Course Hospital Course: Patient's hospital course was essentially uneventful other than addressing her thrombocytosis. Patient was seen by Dr. Betts, who ordered Injectafer for this patient and a hematology work-up was initiated. The patient did have some elevated blood pressures and is now on Procardia 30 mg once a day. Her repeat section incision is healing well and she had no complaints regarding the incision. Physical Exam - Physical Exam Vital Signs: Temp Pulse Resp BP Pulse Ox 98.7 F 71 16 106/50 L 96 04/08/19 08:06 04/08/19 08:06 04/08/19 08:06 04/08/19 08:06 04/08/19 08:06 Intake & Output 04/07/19 04/08/19 04/09/19 06:59 06:59 06:59 Intake Total 400 Balance 400 General appearance: PRESENT: no acute distress Respiratory exam: PRESENT: clear to auscultation yuan Cardiovascular exam: PRESENT: RRR GI/Abdominal exam: PRESENT: normal bowel sounds, soft - Incision: Appropriate tenderness; intact/clean/dry Extremities exam: ABSENT: calf tenderness, clubbing, full ROM, joint swelling, pedal edema, tenderness, +1 edema, +2 edema, other Result Laboratory Results: 04/07/19 05:58 04/05/19 19:33 04/05/19 20:48 Clean Catch Midstream Urine Culture - Final Group B Beta Streptococcus Plan Discharge Plan: 1. Discharge home 2. Continue Procardia 30 mg once daily 3. Follow-up with [facility] on Saturday 4. Follow-up with hematology as instructed Time Spent: Less than 30 Minutes Acute Heart Failure - Is this a Heart Failure Patient?: No
[2019-04-08 11:58] VITALS: BP 121/78
== END 2019-04-08 12:15 | disposition home or self-care (01) | DRG 776 ==
LOC: ER 18:42 → EH 22:09 → 2N 23:05
PROVIDERS: ADMIT Obstetrics & Gynecology; ATTEND Obstetrics & Gynecology
DX: O72.3 Postpartum coagulation defects (principal); D69.6 Thrombocytopenia, unspecified; I15.8 Other secondary hypertension; O90.81 Anemia of the puerperium; O10.93 Unspecified pre-existing hypertension complicating the puerperium; G44.52 New daily persistent headache (NDPH); Z88.0 Allergy status to penicillin
CPT/HCPCS: 36415; 80053; 81001; 81270; 82607; 82728; 82746; 83540; 83550; 85025; 85027; 85045; 85610; 85730; 87086; 87088; 96374; 99285; J1439; J1644; J1885; J2405; J3490; J7050